=== PATIENT | male | born 1965 | race Caucasian/White ===

== ENCOUNTER 2016-12-21 01:41 | Inpatient (IN) | payer MEDICAID ==
[~2016-12-21] VITALS: Ht 177.8 cm; Wt 63.8 kg
[2016-12-21] MEDS ORDERED: PROPOFOL 100 ML IV PRN (01:55)
[2016-12-21] MEDS ORDERED: FENTANYL PF 100 MCG/2ML IV ONE (02:00)
[2016-12-21] MEDS ORDERED: OMNIPAQUE 350 MG/ML, 100ML BOTTLE ONE (02:15)
[2016-12-21 02:34] LABS: ABG COLLECTION SITE RIGHT BRACHIAL
[2016-12-21 02:44] LABS: DAU SCREEN DISCLAIMER
[2016-12-21 02:45] LABS: ASPARTATE AMINO TRANSFERASE 37 U/L (15-37); BLOOD UREA NITROGEN 18 mg/dL (7-18)
[2016-12-21 02:51] LABS: IS PT STATUS REG ER OR PRE ER? YES
[2016-12-21] MEDS ORDERED: SODIUM CHLORIDE 0.9% 1,000ML IVBOLUS ONE (03:00)
[2016-12-21] MEDS ORDERED: LORazepam 1MG TABLET PO PRN (03:30)
[2016-12-21] MEDS ORDERED: BISACODYL 10 MG SUPP PR PRN (03:30)
[2016-12-21] MEDS ORDERED: PROMETHAZINE 25 MG/ML, 1ML IM PRN (03:30)
[2016-12-21] MEDS ORDERED: ONDANSETRON 2MG/ML, 2ML IVP PRN (03:30)
[2016-12-21] MEDS ORDERED: MORPHINE SULFATE 4 MG/ML, 1ML IVPush PRN (03:30)
[2016-12-21] MEDS: SODIUM CHLORIDE 0.9% 1,000 ML IV SCH ×4 (04:12→23:17)
[2016-12-21] MEDS ORDERED: PHARMACY MAY ADJ FOR RENAL FX MC SCH (04:30)
[2016-12-21] MEDS ORDERED: DEXTROSE 50%, 50ML SYRINGE IVPush PRN (04:30)
[2016-12-21] MEDS ORDERED: LACTULOSE 20 GM/30 ML UDC NG PRN (04:30)
[2016-12-21] MEDS ORDERED: GLUCAGON 1 MG IM PRN (04:30)
[2016-12-21] MEDS ORDERED: ROCURONIUM 10 MG/ML IVPush ONE (04:30)
[2016-12-21] MEDS ORDERED: LIDOCAINE-MPF 1%, 2ML ENDO PRN (04:30)
[2016-12-21] MEDS ORDERED: FENTANYL PF 100 MCG/2ML IVPush PRN (04:30)
[2016-12-21] MEDS: ALBUTEROL/IPRATROPIUM 2.5MG/0.5MG, 3 ML INLINE SCH ×7 (04:30→19:02)
[2016-12-21] MEDS ORDERED: ETOMIDATE 20 MG/10 ML IVPush ONE (04:30)
[2016-12-21] MEDS ORDERED: PROPOFOL 100 ML IV ONE (04:34)
[2016-12-21] MEDS ORDERED: ALBUTEROL SULFATE 2.5 MG/3 ML ONE (04:40)
[2016-12-21] MEDS: ENOXAPARIN 40 MG/0.4 ML SQ SCH (05:16)
[2016-12-21 05:59] LABS: ABG COLLECTION SITE RIGHT RADIAL; COLLATERAL CIRCULATION TESTING NORMAL
[2016-12-21 06:28] VITALS: BP 90/67
[2016-12-21] MEDS ORDERED: NOREPINEPHRINE 1 MG/ML, 4ML ONE (06:38)
[2016-12-21] MEDS: FAMOTIDINE 20 MG/2 ML IV SCH ×2 (09:18→21:12)
[2016-12-21] MEDS: PROPOFOL 100 ML IV PRN ×3 (09:22→18:07)
[2016-12-21] MEDS: SODIUM CHLORIDE FLUSH 10ML SYR IVF SCH ×2 (10:02→21:12)
[2016-12-21 10:25] LABS: IS PT STATUS REG ER OR PRE ER? NO
[2016-12-21 10:28] LABS: HIV 1&2 ANTIBODY SCREEN Nonreactive (Nonreactive); HIV-1 p24 ANTIGEN Nonreactive (Nonreactive)
[2016-12-21] MEDS: methylPREDNISolone SOD SUCC 125 MG/2 ML IVPush SCH ×2 (12:01→18:04)
[2016-12-21] MEDS: NOREPINEPHRINE 4 MG in SODIUM CHLORIDE 0.9% 246 ML IV PRN (13:07)
[2016-12-21 15:28] LABS: IS PT STATUS REG ER OR PRE ER? NO
[2016-12-21] MEDS ORDERED: PHARMACOKINETIC MONITORING MC PRN (23:45)
[2016-12-22] MEDS ORDERED: VANCOMYCIN PER PHARMACY MC PRN
[2016-12-22] MEDS: PIPERACILLIN/TAZO/PMX 3.375GM 50 ML IV SCH ×4 (00:09→17:29)
[2016-12-22] MEDS: methylPREDNISolone SOD SUCC 125 MG/2 ML IVPush SCH ×4 (00:09→17:28)
[2016-12-22] MEDS: VANCOMYCIN 1,300 MG in SODIUM CHLORIDE 0.9% 250 ML IV SCH ×2 (00:59→19:32)
[2016-12-22] MEDS: PROPOFOL 100 ML IV PRN ×4 (01:02→14:59)
[2016-12-22] MEDS: ALBUTEROL/IPRATROPIUM 2.5MG/0.5MG, 3 ML INLINE SCH ×6 (02:10→22:27)
[2016-12-22 05:00] LABS: ABG COLLECTION SITE RIGHT RADIAL; COLLATERAL CIRCULATION TESTING NORMAL
[2016-12-22] MEDS: ENOXAPARIN 40 MG/0.4 ML SQ SCH (05:51)
[2016-12-22] MEDS: SODIUM CHLORIDE 0.9% 1,000 ML IV SCH ×2 (08:07→14:54)
[2016-12-22] MEDS: FAMOTIDINE 20 MG/2 ML IV SCH ×2 (08:24→21:12)
[2016-12-22] MEDS: SODIUM CHLORIDE FLUSH 10ML SYR IVF SCH ×2 (08:24→21:12)
[2016-12-22] MEDS ORDERED: ROCURONIUM 10 MG/ML ONE (09:00)
[2016-12-22] MEDS ORDERED: ETOMIDATE 40 MG/20 ML ONE (09:00)
[2016-12-22 09:05] LABS: BLOOD UREA NITROGEN 16 mg/dL (7-18)
[2016-12-22 11:00] LABS: HEPATITIS C VIRUS ANTIBODY Reactive (Nonreactive)
[2016-12-22] MEDS: NOREPINEPHRINE 4 MG in SODIUM CHLORIDE 0.9% 246 ML IV PRN (11:25)
[2016-12-22] MEDS: QUETIAPINE 25MG TABLET PO SCH (21:13)
[2016-12-23] MEDS: SODIUM CHLORIDE 0.9% 1,000 ML IV SCH ×2 (00:10→07:27)
[2016-12-23] MEDS: PIPERACILLIN/TAZO/PMX 3.375GM 50 ML IV SCH ×3 (00:11→14:35)
[2016-12-23] MEDS: methylPREDNISolone SOD SUCC 125 MG/2 ML IVPush SCH ×3 (00:13→14:37)
[2016-12-23] MEDS: ALBUTEROL/IPRATROPIUM 2.5MG/0.5MG, 3 ML INLINE SCH ×2 (02:07→06:50)
[2016-12-23 04:36] LABS: ABG COLLECTION SITE RIGHT RADIAL; COLLATERAL CIRCULATION TESTING NORMAL
[2016-12-23 04:44] LABS: BLOOD UREA NITROGEN 16 mg/dL (7-18)
[2016-12-23 04:48] LABS: ASPARTATE AMINO TRANSFERASE 36 U/L (15-37)
[2016-12-23] MEDS: ENOXAPARIN 40 MG/0.4 ML SQ SCH (05:55)
[2016-12-23] MEDS: PROPOFOL 100 ML IV PRN (06:01)
[2016-12-23] MEDS: SODIUM CHLORIDE FLUSH 10ML SYR IVF SCH (07:27)
[2016-12-23] MEDS: FAMOTIDINE 20 MG/2 ML IV SCH (07:27)
[2016-12-23] MEDS: QUETIAPINE 25MG TABLET PO SCH (07:27)
[2016-12-23] MEDS: VANCOMYCIN 1,300 MG in SODIUM CHLORIDE 0.9% 250 ML IV SCH (14:35)
== END 2016-12-23 16:30 | disposition left against medical advice (07) | DRG 208 ==
LOC: ED 03:37 → CCU 03:40 → MERGE 03:40
PROC: 5A1945Z Respiratory Ventilation, 24-96 Consecutive Hours (ICD-10-PCS; principal; 2016-12-21)
PROC: 0BH17EZ Insertion of Endotracheal Airway into Trachea, Via Natural or Artificial Opening (ICD-10-PCS; 2016-12-21)
PROC: 02HV33Z Insertion of Infusion Device into Superior Vena Cava, Percutaneous Approach (ICD-10-PCS; 2016-12-21)
PROC: B548ZZA Ultrasonography of Superior Vena Cava, Guidance (ICD-10-PCS; 2016-12-21)
PROC: 0T9B70Z Drainage of Bladder with Drainage Device, Via Natural or Artificial Opening (ICD-10-PCS; 2016-12-21)
DX: J96.02 Acute respiratory failure with hypercapnia (principal); G93.40 Encephalopathy, unspecified; I46.8 Cardiac arrest due to other underlying condition; Z99.11 Dependence on respirator [ventilator] status; E44.1 Mild protein-calorie malnutrition; E87.2 Acidosis; J96.01 Acute respiratory failure with hypoxia; R40.2430 Glasgow coma scale score 3-8, unspecified time; R73.9 Hyperglycemia, unspecified; F15.10 Other stimulant abuse, uncomplicated; B19.20 Unspecified viral hepatitis C without hepatic coma; J44.9 Chronic obstructive pulmonary disease, unspecified; D72.829 Elevated white blood cell count, unspecified
CPT/HCPCS: 31500; 36415; 36569; 36600; 51702; 70450; 71010; 71275; 76937; 77001; 80048; 80053; 80074; 80307; 81001; 82140; 82607; 82746; 82803; 82962; 83735; 84100; 84436; 84443; 84478; 84481; 84484; 85025; 85610; 85730; 86703; 87040; 87070; 87081; 87205; 87521; 87899; 93005; 93308; 93321; 93325; 93922; 94002; 94003; 94640; 96361; 96374; 96375; J1650; J2543; J2704; J3010; J3370; J3490; J7620; Q9967; C1751; G0435; J2930; J7030; J7050; S0028

== ENCOUNTER 2017-01-19 22:43 | Inpatient (IN) | payer MEDICAID ==
[~2017-01-19] VITALS: Ht 182.9 cm; Wt 62.0 kg
[2017-01-19] MEDS ORDERED: methylPREDNISolone SOD SUCC 125 MG/2 ML IVP ONE (23:00)
[2017-01-19] MEDS ORDERED: SODIUM CHLORIDE 0.9% 1,000ML IVBOLUS ONE (23:00)
[2017-01-19] MEDS ORDERED: SODIUM CHLORIDE FLUSH 10ML SYR IVF ONE (23:00)
[2017-01-19] MEDS ORDERED: ALBUTEROL/IPRATROPIUM 2.5MG/0.5MG, 3 ML NEB ONE (23:00)
[2017-01-19] MEDS ORDERED: ALBUTEROL/IPRATROPIUM 2.5MG/0.5MG, 3 ML ONE (23:02)
[2017-01-19] MEDS ORDERED: methylPREDNISolone SOD SUCC 125 MG/2 ML ONE (23:05)
[2017-01-19 23:42] LABS: BLOOD UREA NITROGEN 16 mg/dL (7-18)
[2017-01-19 23:48] LABS: ABG COLLECTION SITE RIGHT RADIAL; COLLATERAL CIRCULATION TESTING NORMAL
[2017-01-20] MEDS ORDERED: KETAMINE 10 MG/ML, 20ML ONE (00:03)
[2017-01-20] MEDS ORDERED: PROPOFOL 100 ML IV PRN (00:18)
[2017-01-20] MEDS ORDERED: ALBUTEROL SULFATE 2.5 MG/3 ML ONE (00:24)
[2017-01-20] MEDS ORDERED: PHARMACY MAY ADJ FOR RENAL FX MC PRN (00:30)
[2017-01-20] MEDS ORDERED: PANTOPRAZOLE 40 MG IV IV SCH (00:30)
[2017-01-20] MEDS ORDERED: ALBUTEROL SULFATE 2.5 MG/3 ML NPPB ONE (00:30)
[2017-01-20] MEDS ORDERED: SODIUM CHLORIDE 0.9% 1,000ML IVBOLUS ONE ×2 (00:30)
[2017-01-20] MEDS ORDERED: SUCCINYLCHOLINE 20 MG/ML, 10ML IVPush ONE (00:30)
[2017-01-20] MEDS ORDERED: ACETAMINOPHEN 650 MG/20.3 ML UDC PO PRN (00:30)
[2017-01-20] MEDS ORDERED: ACETAMINOPHEN 650 MG SUPP PR PRN (00:30)
[2017-01-20] MEDS ORDERED: VANCOMYCIN PER PHARMACY MC PRN (00:30)
[2017-01-20] MEDS ORDERED: MORPHINE SULFATE 4 MG/ML, 1ML IV PRN (00:30)
[2017-01-20] MEDS ORDERED: SODIUM CHLORIDE 0.9%, 500ML IVBOLUS PRN ×2 (00:30)
[2017-01-20] MEDS ORDERED: KETAMINE 10 MG/ML, 20ML IV ONE (00:30)
[2017-01-20] MEDS ORDERED: LORazepam 2 MG/ML, 1ML ONE (00:50)
[2017-01-20] MEDS ORDERED: LORazepam 2 MG/ML, 1ML IVPush ONE (01:00)
[2017-01-20 01:03] LABS: ABG COLLECTION SITE LEFT BRACHIAL
[2017-01-20] MEDS: PIPERACILLIN/TAZO/PMX 4.5GM 50 ML IVPB SCH ×4 (01:53→17:44)
[2017-01-20] MEDS: ENOXAPARIN 40 MG/0.4 ML SQ SCH (01:53)
[2017-01-20] MEDS: methylPREDNISolone SOD SUCC 125 MG/2 ML IVPush SCH ×3 (01:58→17:43)
[2017-01-20] MEDS ORDERED: PHARMACOKINETIC MONITORING MC PRN (02:00)
[2017-01-20] MEDS ORDERED: VANCOMYCIN 1,400 MG in SODIUM CHLORIDE 0.9% 250 ML IV SCH (02:00)
[2017-01-20] MEDS ORDERED: PHARMACOKINETIC CONSULTATION MC ONE (02:00)
[2017-01-20 02:14] LABS: ABG COLLECTION SITE LEFT RADIAL; COLLATERAL CIRCULATION TESTING NORMAL
[2017-01-20 02:21] VITALS: BP 78/56
[2017-01-20 02:25] VITALS: BP 78/56
[2017-01-20] MEDS ORDERED: ALBUTEROL/IPRATROPIUM 2.5MG/0.5MG, 3 ML NEB ONE (02:30)
[2017-01-20] MEDS ORDERED: PNEUMOCOCCAL 23 VACCINE IM-VACC ONE (03:00)
[2017-01-20] MEDS: SODIUM CHLORIDE 0.9% 1,000 ML IV SCH ×2 (03:30→15:06)
[2017-01-20] MEDS ORDERED: FENTANYL PF 2,500 MCG in SODIUM CHLORIDE 0.9% 200 ML IV PRN (04:14)
[2017-01-20 04:30] VITALS: BP 110/66
[2017-01-20] MEDS ORDERED: GLUCAGON 1 MG IM PRN (04:30)
[2017-01-20] MEDS ORDERED: MIDAZOLAM 1 MG/ML, 2ML IVPush PRN (04:30)
[2017-01-20] MEDS ORDERED: ALBUTEROL/IPRATROPIUM 2.5MG/0.5MG, 3 ML INLINE SCH (04:30)
[2017-01-20] MEDS ORDERED: LIDOCAINE-MPF 1%, 2ML ENDO PRN (04:30)
[2017-01-20] MEDS ORDERED: DEXTROSE 50%, 50ML SYRINGE IVPush PRN (04:30)
[2017-01-20 04:37] LABS: ABG COLLECTION SITE LEFT RADIAL; COLLATERAL CIRCULATION TESTING NORMAL
[2017-01-20 04:51] LABS: IS PT STATUS REG ER OR PRE ER? NO
[2017-01-20] MEDS: ALBUTEROL/IPRATROPIUM 2.5MG/0.5MG, 3 ML INLINE SCH ×5 (06:00→22:04)
[2017-01-20] MEDS: PROPOFOL 100 ML IV PRN (06:21)
[2017-01-20] MEDS ORDERED: PROPOFOL 10 MG/ML, 100ML IV ONE (08:00)
[2017-01-20] MEDS ORDERED: ROCURONIUM 10 MG/ML ONE (08:00)
[2017-01-20] MEDS ORDERED: SUCCINYLCHOLINE 20 MG/ML, 10ML ONE (08:00)
[2017-01-20] MEDS ORDERED: PROPOFOL 10 MG/ML, 20ML ONE (08:00)
[2017-01-20] MEDS: VANCOMYCIN 1,200 MG in SODIUM CHLORIDE 0.9% 250 ML IV SCH (15:05)
[2017-01-20] MEDS: FAMOTIDINE 20 MG/2 ML IVPush SCH (21:14)
[2017-01-21] MEDS: methylPREDNISolone SOD SUCC 125 MG/2 ML IVPush SCH ×3 (00:06→17:24)
[2017-01-21] MEDS: ENOXAPARIN 40 MG/0.4 ML SQ SCH (00:06)
[2017-01-21] MEDS: PIPERACILLIN/TAZO/PMX 4.5GM 50 ML IVPB SCH ×4 (00:06→18:38)
[2017-01-21] MEDS: PROPOFOL 100 ML IV PRN (00:07)
[2017-01-21] MEDS: SODIUM CHLORIDE 0.9% 1,000 ML IV SCH ×2 (01:14→11:18)
[2017-01-21] MEDS: ALBUTEROL/IPRATROPIUM 2.5MG/0.5MG, 3 ML INLINE SCH ×2 (01:30→06:00)
[2017-01-21 02:09] LABS: DAU SCREEN DISCLAIMER
[2017-01-21] MEDS: VANCOMYCIN 1,200 MG in SODIUM CHLORIDE 0.9% 250 ML IV SCH ×2 (02:17→14:29)
[2017-01-21 02:52] LABS: IS PT STATUS REG ER OR PRE ER? NO
[2017-01-21 04:00] VITALS: BP 107/73
[2017-01-21 04:23] LABS: ABG COLLECTION SITE LEFT RADIAL; COLLATERAL CIRCULATION TESTING NORMAL
[2017-01-21 04:32] LABS: BLOOD UREA NITROGEN 21 mg/dL (7-18)
[2017-01-21 04:35] LABS: ASPARTATE AMINO TRANSFERASE 20 U/L (15-37)
[2017-01-21 08:47] LABS: IS PT STATUS REG ER OR PRE ER? NO
[2017-01-21] MEDS: FAMOTIDINE 20 MG/2 ML IVPush SCH (08:54)
[2017-01-21] MEDS ORDERED: ALBUTEROL/IPRATROPIUM 2.5MG/0.5MG, 3 ML NPPB PRN (11:30)
[2017-01-21] MEDS ORDERED: ALBUTEROL/IPRATROPIUM 2.5MG/0.5MG, 3 ML NPPB SCH (14:00)
[2017-01-21] MEDS: ALBUTEROL/IPRATROPIUM 2.5MG/0.5MG, 3 ML NPPB SCH ×2 (19:50→23:20)
[2017-01-21] MEDS: FAMOTIDINE 20 MG TABLET PO SCH (21:24)
[2017-01-22] MEDS: ENOXAPARIN 40 MG/0.4 ML SQ SCH ×2 (00:11→23:57)
[2017-01-22] MEDS: PIPERACILLIN/TAZO/PMX 4.5GM 50 ML IVPB SCH ×2 (00:11→06:09)
[2017-01-22] MEDS: methylPREDNISolone SOD SUCC 125 MG/2 ML IVPush SCH ×2 (00:11→08:01)
[2017-01-22] MEDS: SODIUM CHLORIDE 0.9% 1,000 ML IV SCH (00:11)
[2017-01-22] MEDS: VANCOMYCIN 1,200 MG in SODIUM CHLORIDE 0.9% 250 ML IV SCH ×2 (02:04→15:42)
[2017-01-22 04:00] VITALS: BP 142/80
[2017-01-22 04:42] LABS: ABG COLLECTION SITE RIGHT RADIAL; COLLATERAL CIRCULATION TESTING NORMAL
[2017-01-22 04:57] LABS: BLOOD UREA NITROGEN 17 mg/dL (7-18)
[2017-01-22 05:02] LABS: ASPARTATE AMINO TRANSFERASE 13 U/L (15-37)
[2017-01-22] MEDS: ALBUTEROL/IPRATROPIUM 2.5MG/0.5MG, 3 ML NPPB SCH ×5 (06:00→22:19)
[2017-01-22] MEDS: PIPERACILLIN/TAZO/PMX 4.5GM 100 ML IVPB SCH ×3 (06:15→18:12)
[2017-01-22] MEDS: FAMOTIDINE 20 MG TABLET PO SCH ×2 (08:01→19:51)
[2017-01-22 12:54] VITALS: BP 120/78
[2017-01-22] MEDS ORDERED: ACETAMINOPHEN 325 MG TABLET ONE (19:16)
[2017-01-22 19:18] VITALS: BP 118/56
[2017-01-22] MEDS ORDERED: ACETAMINOPHEN 325 MG TABLET PO PRN (20:00)
[2017-01-22] MEDS: AMPICILLIN/SULBACTAM 3 GM in SODIUM CHLORIDE 0.9% 100 ML IV SCH (23:57)
[2017-01-23 01:39] VITALS: BP 107/56
[2017-01-23] MEDS: VANCOMYCIN 1,200 MG in SODIUM CHLORIDE 0.9% 250 ML IV SCH ×2 (02:51→15:18)
[2017-01-23 05:48] LABS: BLOOD UREA NITROGEN 21 mg/dL (7-18)
[2017-01-23] MEDS: AMPICILLIN/SULBACTAM 3 GM in SODIUM CHLORIDE 0.9% 100 ML IV SCH ×4 (05:50→23:27)
[2017-01-23 07:03] VITALS: BP 123/84
[2017-01-23] MEDS: ALBUTEROL/IPRATROPIUM 2.5MG/0.5MG, 3 ML NPPB SCH ×4 (07:25→19:57)
[2017-01-23] MEDS: FAMOTIDINE 20 MG TABLET PO SCH ×2 (08:01→20:24)
[2017-01-23 12:53] VITALS: BP 111/73
[2017-01-23 20:49] VITALS: BP 105/67
[2017-01-23] MEDS: ENOXAPARIN 40 MG/0.4 ML SQ SCH (23:27)
[2017-01-24 02:31] VITALS: BP 124/84
[2017-01-24] MEDS: VANCOMYCIN 1,200 MG in SODIUM CHLORIDE 0.9% 250 ML IV SCH ×2 (02:43→15:07)
[2017-01-24] MEDS: AMPICILLIN/SULBACTAM 3 GM in SODIUM CHLORIDE 0.9% 100 ML IV SCH ×3 (05:22→18:14)
[2017-01-24 07:18] VITALS: BP 116/85
[2017-01-24] MEDS: ALBUTEROL/IPRATROPIUM 2.5MG/0.5MG, 3 ML NPPB SCH ×4 (07:40→19:50)
[2017-01-24] MEDS: FAMOTIDINE 20 MG TABLET PO SCH (08:04)
[2017-01-24 13:02] VITALS: BP 111/69
[2017-01-24 21:27] VITALS: BP 115/66
[2017-01-25] MEDS: AMPICILLIN/SULBACTAM 3 GM in SODIUM CHLORIDE 0.9% 100 ML IV SCH ×4 (00:45→18:22)
[2017-01-25] MEDS: ENOXAPARIN 40 MG/0.4 ML SQ SCH (00:45)
[2017-01-25 03:44] VITALS: BP 121/75
[2017-01-25 05:59] LABS: BLOOD UREA NITROGEN 26 mg/dL (7-18)
[2017-01-25] MEDS: ALBUTEROL/IPRATROPIUM 2.5MG/0.5MG, 3 ML NPPB SCH (07:00)
[2017-01-25 07:48] VITALS: BP 106/67
[2017-01-25 13:47] VITALS: BP 114/68
[2017-01-25 19:01] VITALS: BP 115/66
[2017-01-25] MEDS ORDERED: CALCIUM CARBONATE 500 MG TAB.CHEW PO PRN (22:00)
[2017-01-26] MEDS: ENOXAPARIN 40 MG/0.4 ML SQ SCH (00:11)
[2017-01-26] MEDS: AMPICILLIN/SULBACTAM 3 GM in SODIUM CHLORIDE 0.9% 100 ML IV SCH ×3 (00:11→12:00)
[2017-01-26 02:00] VITALS: BP 120/75
[2017-01-26 06:58] VITALS: BP 112/74
[2017-01-26 12:15] VITALS: BP 138/68
[2017-01-26] MEDS ORDERED: AMOX1TAB64 PO (12:49)
[2017-01-26] MEDS ORDERED: PRED20TA PO (12:49)
[2017-01-26] MEDS ORDERED: ALBU8.5H3 INH (12:49)
== END 2017-01-26 15:17 | disposition home health service (06) | DRG 871 ==
LOC: ED 23:59 → SUATTDRO 01-20 00:25 → EDIP 01-20 00:29 → CCU 01-20 01:18 → 4WST 01-22 11:21
PROVIDERS: ADMIT Family Medicine; ATTEND Family Medicine
PROC: 5A09357 Assistance with Respiratory Ventilation, Less than 24 Consecutive Hours, Continuous Positive Airway Pressure (ICD-10-PCS; principal; 2017-01-20)
PROC: 5A1945Z Respiratory Ventilation, 24-96 Consecutive Hours (ICD-10-PCS; 2017-01-20)
PROC: 0BH17EZ Insertion of Endotracheal Airway into Trachea, Via Natural or Artificial Opening (ICD-10-PCS; 2017-01-20)
PROC: 0T9B70Z Drainage of Bladder with Drainage Device, Via Natural or Artificial Opening (ICD-10-PCS; 2017-01-20)
DX: A40.9 Streptococcal sepsis, unspecified (principal); J96.01 Acute respiratory failure with hypoxia; J96.02 Acute respiratory failure with hypercapnia; E43 Unspecified severe protein-calorie malnutrition; Z99.11 Dependence on respirator [ventilator] status; J44.1 Chronic obstructive pulmonary disease with (acute) exacerbation; E87.2 Acidosis; Z68.1 Body mass index [BMI] 19.9 or less, adult; F17.210 Nicotine dependence, cigarettes, uncomplicated; F15.10 Other stimulant abuse, uncomplicated; Z91.19 Patient's noncompliance with other medical treatment and regimen; S82.892A Other fracture of left lower leg, initial encounter for closed fracture; D64.9 Anemia, unspecified; R73.9 Hyperglycemia, unspecified; B96.3 Hemophilus influenzae [H. influenzae] as the cause of diseases classified elsewhere
CPT/HCPCS: 36415; 36600; 71010; 80048; 80053; 80202; 80307; 81001; 82040; 82803; 83735; 84478; 84484; 85025; 87040; 87070; 87081; 87147; 87150; 87205; 93005; 93306; 94002; 94003; 94640; 94660; 96374; 96375; J0295; J1650; J2250; J2543; J2704; J3370; J7613; J7620; C9113; J0330; J2060; J2930; J7030; J7050; J7512; S0028

== ENCOUNTER 2017-02-20 09:07 | Inpatient (IN) | payer MEDICAID ==
[~2017-02-20] VITALS: Ht 182.9 cm; Wt 73.5 kg
[~2017-02-20 09:07] MED LIST: ALBU8.5H3 INH; AMOX1TAB64 PO; PRED20TA PO
[2017-02-20] MEDS ORDERED: SODIUM CHLORIDE 0.9% 1,000 ML IV ONE (09:40)
[2017-02-20] MEDS ORDERED: ALBUTEROL/IPRATROPIUM 2.5MG/0.5MG, 3 ML ONE ×3 (09:57→13:06)
[2017-02-20] MEDS ORDERED: SODIUM CHLORIDE 0.9% 1,000ML IVBOLUS ONE (10:00)
[2017-02-20] MEDS ORDERED: methylPREDNISolone SOD SUCC 125 MG/2 ML IVP ONE (10:00)
[2017-02-20] MEDS ORDERED: methylPREDNISolone SOD SUCC 125 MG/2 ML ONE (10:08)
[2017-02-20 10:12] LABS: BLOOD UREA NITROGEN 15 mg/dL (7-18)
[2017-02-20] MEDS: ALBUTEROL/IPRATROPIUM 2.5MG/0.5MG, 3 ML NPPB SCH (10:14)
[2017-02-20 10:17] LABS: IS PT STATUS REG ER OR PRE ER? YES
[2017-02-20] MEDS ORDERED: ALBUTEROL/IPRATROPIUM 2.5MG/0.5MG, 3 ML NPPB ONE (11:00)
[2017-02-20] MEDS ORDERED: MAGNESIUM SULFATE PMX 2GM/50ML 50 ML IVPB ONE (12:00)
[2017-02-20] MEDS ORDERED: SODIUM CHLORIDE FLUSH 10ML SYR IVF PRN (12:30)
[2017-02-20] MEDS ORDERED: POLYETHYLENE GLYCOL 17 GM PACKET PO PRN (13:30)
[2017-02-20] MEDS: NICOTINE 14MG/24 HR PATCH.TD24 TD SCH (13:30)
[2017-02-20] MEDS ORDERED: BISACODYL 10 MG SUPP PR PRN (13:30)
[2017-02-20] MEDS ORDERED: OXYcodone IR 5MG TABLET PO PRN (13:30)
[2017-02-20] MEDS: ENOXAPARIN 40 MG/0.4 ML SQ SCH (13:30)
[2017-02-20] MEDS ORDERED: ACETAMINOPHEN 325 MG TABLET PO PRN (13:30)
[2017-02-20] MEDS ORDERED: ONDANSETRON 2MG/ML, 2ML IVPush PRN (13:30)
[2017-02-20] MEDS ORDERED: ENALAPRILAT 1.25 MG/ML, 2ML IVPush PRN (13:30)
[2017-02-20] MEDS ORDERED: morphine SULFATE 10 MG/ML, 1ML IVPush PRN (13:30)
[2017-02-20] MEDS ORDERED: hydrALAzine 20 MG/ML, 1ML IVPush PRN (13:30)
[2017-02-20] MEDS ORDERED: NICOTINE 14MG/24 HR PATCH.TD24 ONE (13:57)
[2017-02-20] MEDS ORDERED: ENOXAPARIN 40 MG/0.4 ML ONE (13:58)
[2017-02-20] MEDS ORDERED: ALBUTEROL/IPRATROPIUM 2.5MG/0.5MG, 3 ML NPPB SCH (15:00)
[2017-02-20] MEDS: SODIUM CHLORIDE 0.9% 1,000 ML IV SCH (18:25)
[2017-02-20] MEDS: DOXYCYCLINE 100 MG in DEXTROSE 5% 250 ML IV SCH (18:25)
[2017-02-20] MEDS: methylPREDNISolone SOD SUCC 125 MG/2 ML IVPush SCH ×2 (18:28→22:00)
[2017-02-20 18:54] VITALS: BP 125/85
[2017-02-20] MEDS: ALBUTEROL/IPRATROPIUM 2.5MG/0.5MG, 3 ML HHN SCH (20:06)
[2017-02-21 01:38] VITALS: BP 126/86
[2017-02-21] MEDS: DOXYCYCLINE 100 MG in DEXTROSE 5% 250 ML IV SCH ×2 (04:00→17:04)
[2017-02-21] MEDS: methylPREDNISolone SOD SUCC 125 MG/2 ML IVPush SCH ×4 (04:00→21:13)
[2017-02-21] MEDS: SODIUM CHLORIDE 0.9% 1,000 ML IV SCH (04:45)
[2017-02-21 05:21] LABS: ASPARTATE AMINO TRANSFERASE 20 U/L (15-37); BLOOD UREA NITROGEN 17 mg/dL (7-18)
[2017-02-21] MEDS: ALBUTEROL/IPRATROPIUM 2.5MG/0.5MG, 3 ML HHN SCH ×4 (06:00→20:15)
[2017-02-21 07:30] VITALS: BP 120/87
[2017-02-21] MEDS: SENNA/DOCUSATE TABLET PO SCH (08:32)
[2017-02-21 14:00] VITALS: BP 127/86
[2017-02-21] MEDS: NICOTINE 14MG/24 HR PATCH.TD24 TD SCH (14:03)
[2017-02-21] MEDS: ENOXAPARIN 40 MG/0.4 ML SQ SCH (14:04)
[2017-02-21 14:53] VITALS: BP 147/80
[2017-02-21 18:53] VITALS: BP 118/64
[2017-02-22 01:50] VITALS: BP 119/70
[2017-02-22] MEDS: methylPREDNISolone SOD SUCC 125 MG/2 ML IVPush SCH ×4 (04:22→21:16)
[2017-02-22] MEDS: DOXYCYCLINE 100 MG in DEXTROSE 5% 250 ML IV SCH ×2 (04:22→16:31)
[2017-02-22] MEDS: ALBUTEROL/IPRATROPIUM 2.5MG/0.5MG, 3 ML HHN SCH ×2 (06:00→19:30)
[2017-02-22 07:44] VITALS: BP 116/79
[2017-02-22] MEDS ORDERED: ALBUTEROL/IPRATROPIUM 2.5MG/0.5MG, 3 ML NPPB PRN (08:00)
[2017-02-22] MEDS: SENNA/DOCUSATE TABLET PO SCH (09:00)
[2017-02-22 12:35] VITALS: BP 112/75
[2017-02-22] MEDS: ENOXAPARIN 40 MG/0.4 ML SQ SCH (13:30)
[2017-02-22] MEDS: NICOTINE 14MG/24 HR PATCH.TD24 TD SCH (14:48)
[2017-02-22 19:54] VITALS: BP 131/82
[2017-02-23] MEDS: DOXYCYCLINE 100 MG in DEXTROSE 5% 250 ML IV SCH (03:29)
[2017-02-23] MEDS: methylPREDNISolone SOD SUCC 125 MG/2 ML IVPush SCH ×2 (03:29→09:04)
[2017-02-23 03:36] VITALS: BP 122/63
[2017-02-23 07:30] VITALS: BP 116/79
[2017-02-23] MEDS ORDERED: SENNA/DOCUSATE TABLET PO SCH (09:00)
[2017-02-23] MEDS: ALBUTEROL/IPRATROPIUM 2.5MG/0.5MG, 3 ML HHN SCH (09:00)
[2017-02-23] MEDS ORDERED: POLY17PO5 PO (12:12)
[2017-02-23] MEDS ORDERED: IPRA3AMP NPPB (12:12)
[2017-02-23] MEDS ORDERED: DOXY-168 PO (12:12)
[2017-02-23] MEDS ORDERED: PRED5TAB PO (12:12)
[2017-02-23] MEDS ORDERED: ALBU8.5H3 INH (12:19)
[2017-02-23 12:48] VITALS: BP 124/79
[2017-02-23] MEDS: ENOXAPARIN 40 MG/0.4 ML SQ SCH (13:30)
[2017-02-23] MEDS: NICOTINE 14MG/24 HR PATCH.TD24 TD SCH (13:46)
[2017-02-23] MEDS ORDERED: POLYETHYLENE GLYCOL 17 GM PACKET PO PRN (14:30)
[2017-02-23] MEDS ORDERED: OXYcodone IR 5MG TABLET PO PRN (14:30)
[2017-02-23] MEDS ORDERED: ENALAPRILAT 1.25 MG/ML, 2ML IVPush PRN (14:30)
[2017-02-23] MEDS ORDERED: ONDANSETRON 2MG/ML, 2ML IVPush PRN (14:30)
[2017-02-24] MEDS ORDERED: ENOXAPARIN 40 MG/0.4 ML SQ SCH (13:30)
== END 2017-02-23 14:10 | disposition home or self-care (01) | DRG 191 ==
LOC: ED 09:43 → EDIP 12:05 → 4WST 15:04
PROVIDERS: ADMIT Internal Medicine; ATTEND Internal Medicine
DX: J44.1 Chronic obstructive pulmonary disease with (acute) exacerbation (principal); E46 Unspecified protein-calorie malnutrition; F17.210 Nicotine dependence, cigarettes, uncomplicated; F15.10 Other stimulant abuse, uncomplicated; B18.2 Chronic viral hepatitis C; Z68.22 Body mass index [BMI] 22.0-22.9, adult; Z71.6 Tobacco abuse counseling
CPT/HCPCS: 36415; 71010; 80048; 80053; 80061; 81003; 82040; 83036; 83735; 83880; 84439; 84443; 84484; 85025; 87070; 87205; 93005; 94640; 96374; J1650; J7060; J7620; J2930; J3475; J7030

== ENCOUNTER 2017-03-11 10:26 | Inpatient (IN) | payer MEDICAID ==
[~2017-03-11] VITALS: Ht 177.8 cm; Wt 64.1 kg
[~2017-03-11 10:26] MED LIST changes: +DOXY-168 PO; +IPRA3AMP NPPB; +POLY17PO5 PO; +PRED5TAB PO
[2017-03-11 10:52] LABS: ABG COLLECTION SITE RIGHT RADIAL; COLLATERAL CIRCULATION TESTING NORMAL
[2017-03-11] MEDS ORDERED: FENTANYL PF 100 MCG/2ML ONE (10:57)
[2017-03-11] MEDS ORDERED: methylPREDNISolone SOD SUCC 125 MG/2 ML ONE (10:59)
[2017-03-11] MEDS ORDERED: SODIUM CHLORIDE FLUSH 10ML SYR IVF ONE (11:00)
[2017-03-11] MEDS ORDERED: PROPOFOL 10 MG/ML, 20ML IVPush ONE (11:00)
[2017-03-11] MEDS ORDERED: MIDAZOLAM 1 MG/ML, 2ML IVPush ONE ×2 (11:00)
[2017-03-11] MEDS ORDERED: SODIUM CHLORIDE 0.9% 1,000ML IVBOLUS ONE ×2 (11:00→12:00)
[2017-03-11] MEDS ORDERED: ETOMIDATE 20 MG/10 ML IVPush ONE (11:00)
[2017-03-11] MEDS ORDERED: MAGNESIUM SULFATE PMX 2GM/50ML 50 ML IV ONE (11:00)
[2017-03-11] MEDS ORDERED: FENTANYL PF 100 MCG/2ML IV ONE (11:00)
[2017-03-11] MEDS ORDERED: SUCCINYLCHOLINE 20 MG/ML, 10ML IVPush ONE (11:00)
[2017-03-11] MEDS ORDERED: methylPREDNISolone SOD SUCC 125 MG/2 ML IVP ONE (11:00)
[2017-03-11] MEDS ORDERED: ALBUTEROL/IPRATROPIUM 2.5MG/0.5MG, 3 ML ONE (11:02)
[2017-03-11 11:30] LABS: BLOOD UREA NITROGEN 16 mg/dL (7-18)
[2017-03-11 11:34] LABS: IS PT STATUS REG ER OR PRE ER? YES
[2017-03-11] MEDS: MIDAZOLAM HCL 25 MG in SODIUM CHLORIDE 0.9% 245 ML IV PRN ×2 (11:37→18:40)
[2017-03-11 12:13] LABS: DAU SCREEN DISCLAIMER
[2017-03-11] MEDS ORDERED: NOREPINEPHRINE 4 MG in SODIUM CHLORIDE 0.9% 246 ML IV PRN (12:21)
[2017-03-11] MEDS ORDERED: PROPOFOL 100 ML IV PRN (12:21)
[2017-03-11] MEDS ORDERED: MIDAZOLAM 1 MG/ML, 2ML IVPush PRN (12:30)
[2017-03-11] MEDS ORDERED: LIDOCAINE-MPF 1%, 2ML ENDO PRN (12:30)
[2017-03-11] MEDS ORDERED: DEXTROSE 50%, 50ML SYRINGE IVPush PRN (12:30)
[2017-03-11] MEDS: ALBUTEROL/IPRATROPIUM 2.5MG/0.5MG, 3 ML INLINE SCH ×4 (12:30→22:31)
[2017-03-11] MEDS ORDERED: GLUCAGON 1 MG IM PRN (12:30)
[2017-03-11] MEDS ORDERED: FENTANYL PF 100 MCG/2ML IVPush PRN (12:30)
[2017-03-11] MEDS ORDERED: MIDAZOLAM 1 MG/ML, 5ML ONE (14:00)
[2017-03-11] MEDS ORDERED: ETOMIDATE 20 MG/10 ML ONE (14:00)
[2017-03-11] MEDS ORDERED: SUCCINYLCHOLINE 20 MG/ML, 10ML ONE (14:00)
[2017-03-11] MEDS ORDERED: PROPOFOL 10 MG/ML, 100ML IV ONE (14:00)
[2017-03-11] MEDS ORDERED: PROPOFOL 10 MG/ML, 20ML ONE (14:00)
[2017-03-11] MEDS: ENOXAPARIN 40 MG/0.4 ML SQ SCH (14:16)
[2017-03-11] MEDS ORDERED: DOCUSATE 100 MG CAPSULE PO PRN (16:30)
[2017-03-11] MEDS ORDERED: BISACODYL 10 MG SUPP PR PRN (16:30)
[2017-03-11] MEDS ORDERED: POLYETHYLENE GLYCOL 17 GM PACKET PO PRN (16:30)
[2017-03-11] MEDS: methylPREDNISolone SOD SUCC 125 MG/2 ML IVPush SCH ×2 (16:54→22:50)
[2017-03-11] MEDS: THIAMINE 100 MG, MVI ADULT 10 ML, FOLIC ACID 1 MG in D5%-0.9% NACL 1,000 ML IV SCH (16:54)
[2017-03-11 21:32] LABS: ABG COLLECTION SITE RIGHT RADIAL; COLLATERAL CIRCULATION TESTING NORMAL
[2017-03-11] MEDS: FAMOTIDINE 20 MG/2 ML IVPush SCH (22:48)
[2017-03-11] MEDS: SODIUM CHLORIDE FLUSH 10ML SYR IVF SCH (22:48)
[2017-03-12] MEDS: MIDAZOLAM HCL 25 MG in SODIUM CHLORIDE 0.9% 245 ML IV PRN ×3 (01:25→12:30)
[2017-03-12] MEDS: ALBUTEROL/IPRATROPIUM 2.5MG/0.5MG, 3 ML INLINE SCH ×6 (02:42→23:40)
[2017-03-12] MEDS: SODIUM CHLORIDE 0.9% 1,000 ML IV SCH ×2 (03:10→11:19)
[2017-03-12 04:23] VITALS: BP 106/67
[2017-03-12 04:23] LABS: ABG COLLECTION SITE RIGHT RADIAL; COLLATERAL CIRCULATION TESTING NORMAL
[2017-03-12] MEDS: methylPREDNISolone SOD SUCC 125 MG/2 ML IVPush SCH ×4 (04:33→22:16)
[2017-03-12 04:34] LABS: ASPARTATE AMINO TRANSFERASE 19 U/L (15-37); BLOOD UREA NITROGEN 15 mg/dL (7-18)
[2017-03-12] MEDS: SODIUM CHLORIDE FLUSH 10ML SYR IVF SCH ×2 (09:09→20:13)
[2017-03-12] MEDS: FAMOTIDINE 20 MG/2 ML IVPush SCH ×2 (09:09→20:13)
[2017-03-12] MEDS: ENOXAPARIN 40 MG/0.4 ML SQ SCH (11:22)
[2017-03-12] MEDS: THIAMINE 100 MG, MVI ADULT 10 ML, FOLIC ACID 1 MG in D5%-0.9% NACL 1,000 ML IV SCH (19:51)
[2017-03-13] MEDS: MIDAZOLAM HCL 25 MG in SODIUM CHLORIDE 0.9% 245 ML IV PRN (01:22)
[2017-03-13 04:00] VITALS: BP 127/73
[2017-03-13] MEDS: SODIUM CHLORIDE 0.9% 1,000 ML IV SCH (04:02)
[2017-03-13] MEDS: methylPREDNISolone SOD SUCC 125 MG/2 ML IVPush SCH ×2 (04:13→08:08)
[2017-03-13 04:28] LABS: ABG COLLECTION SITE RIGHT RADIAL; COLLATERAL CIRCULATION TESTING NORMAL
[2017-03-13] MEDS: ALBUTEROL/IPRATROPIUM 2.5MG/0.5MG, 3 ML INLINE SCH ×3 (04:30→10:34)
[2017-03-13 04:34] LABS: BLOOD UREA NITROGEN 20 mg/dL (7-18)
[2017-03-13] MEDS: SODIUM CHLORIDE FLUSH 10ML SYR IVF SCH (08:08)
[2017-03-13] MEDS: FAMOTIDINE 20 MG/2 ML IVPush SCH (08:08)
[2017-03-13] MEDS ORDERED: PRED10TA PO (12:52)
== END 2017-03-13 11:53 | disposition left against medical advice (07) | DRG 208 ==
LOC: ED 10:44 → EDIP 12:08 → CCU 13:56
PROVIDERS: ADMIT Hospitalist; ATTEND Hospitalist
PROC: 5A1945Z Respiratory Ventilation, 24-96 Consecutive Hours (ICD-10-PCS; principal; 2017-03-11)
PROC: 02HV33Z Insertion of Infusion Device into Superior Vena Cava, Percutaneous Approach (ICD-10-PCS; 2017-03-11)
PROC: 0BH17EZ Insertion of Endotracheal Airway into Trachea, Via Natural or Artificial Opening (ICD-10-PCS; 2017-03-11)
DX: J96.21 Acute and chronic respiratory failure with hypoxia (principal); J44.1 Chronic obstructive pulmonary disease with (acute) exacerbation; E87.2 Acidosis; Z99.11 Dependence on respirator [ventilator] status; E46 Unspecified protein-calorie malnutrition; J96.22 Acute and chronic respiratory failure with hypercapnia; F15.90 Other stimulant use, unspecified, uncomplicated; E86.1 Hypovolemia; F17.210 Nicotine dependence, cigarettes, uncomplicated; B18.2 Chronic viral hepatitis C; Z68.20 Body mass index [BMI] 20.0-20.9, adult
CPT/HCPCS: 31500; 36415; 36556; 36600; 51702; 71010; 80048; 80053; 80307; 82040; 82803; 83605; 83735; 83880; 84478; 84484; 85025; 87040; 87070; 87081; 87205; 93005; 94002; 94003; 94150; 94640; 96361; 96374; 96375; J1650; J2250; J2704; J3010; J3411; J7042; J7620; J0330; J2930; J3475; J7030; J7050; S0028

== ENCOUNTER 2017-08-06 11:19 | Inpatient (IN) | payer MEDICAID ==
[~2017-08-06] VITALS: Ht 182.9 cm; Wt 65.6 kg
[~2017-08-06 11:19] MED LIST changes: -ALBU8.5H3 INH; +ALBU8.5H8 INH; -DOXY-168 PO; +DOXY100T10 PO; +PRED10TA PO
[2017-08-06] MEDS ORDERED: methylPREDNISolone SOD SUCC 125 MG/2 ML IVP ONE (11:30)
[2017-08-06] MEDS ORDERED: ALBUTEROL 0.5%, 20ML NPPB SCH (11:30)
[2017-08-06] MEDS ORDERED: SODIUM CHLORIDE FLUSH 10ML SYR IVF ONE (11:30)
[2017-08-06] MEDS ORDERED: methylPREDNISolone SOD SUCC 125 MG/2 ML ONE (11:32)
[2017-08-06] MEDS ORDERED: LORazepam 2 MG/ML, 1ML ONE (11:38)
[2017-08-06] MEDS ORDERED: ALBUTEROL 0.5%, 20ML ONE (11:43)
[2017-08-06] MEDS ORDERED: LORazepam 2 MG/ML, 1ML IVPush ONE (12:00)
[2017-08-06 12:11] LABS: ABG COLLECTION SITE RIGHT RADIAL; COLLATERAL CIRCULATION TESTING NORMAL
[2017-08-06 12:13] LABS: HEMATOCRIT 50.8 % (39.2-51.8); HEMOGLOBIN 16.8 g/dL (13.7-18.0); WHITE BLOOD COUNT 11.7 x10^3/uL (3.4-10)
[2017-08-06 12:26] LABS: ASPARTATE AMINO TRANSFERASE 27 U/L (15-37); BLOOD UREA NITROGEN 22 mg/dL (7-18)
[2017-08-06 12:31] LABS: IS PT STATUS REG ER OR PRE ER? YES
[2017-08-06] MEDS: SODIUM CHLORIDE 0.9% 1,000 ML IV SCH (12:53)
[2017-08-06] MEDS ORDERED: hydrALAzine 20 MG/ML, 1ML IVPush PRN (13:00)
[2017-08-06] MEDS ORDERED: TEMAZEPAM 15 MG CAPSULE PO PRN (13:00)
[2017-08-06] MEDS ORDERED: POLYETHYLENE GLYCOL 17 GM PACKET PO PRN (13:00)
[2017-08-06] MEDS ORDERED: LORazepam 1MG TABLET PO PRN (13:00)
[2017-08-06] MEDS ORDERED: ACETAMINOPHEN 325 MG TABLET PO PRN (13:00)
[2017-08-06] MEDS ORDERED: OXYcodone IR 5MG TABLET PO PRN (13:00)
[2017-08-06] MEDS ORDERED: ONDANSETRON 2MG/ML, 2ML IVPush PRN (13:00)
[2017-08-06] MEDS ORDERED: ENALAPRILAT 1.25 MG/ML, 2ML IVPush PRN (13:00)
[2017-08-06] MEDS: ALBUTEROL/IPRATROPIUM 2.5MG/0.5MG, 3 ML NPPB SCH ×3 (14:00→22:10)
[2017-08-06 14:33] LABS: ABG COLLECTION SITE LEFT RADIAL; COLLATERAL CIRCULATION TESTING NORMAL
[2017-08-06] MEDS: ENOXAPARIN 40 MG/0.4 ML SQ SCH (15:29)
[2017-08-06] MEDS: methylPREDNISolone SOD SUCC 125 MG/2 ML IVPush SCH ×2 (15:29→21:42)
[2017-08-06 20:30] VITALS: BP 111/68
[2017-08-06 22:20] LABS: DAU SCREEN DISCLAIMER
[2017-08-06 22:58] LABS: RAPID INFLUENZA A Negative (Negative); RAPID INFLUENZA B Negative (Negative)
[2017-08-07] MEDS: SODIUM CHLORIDE 0.9% 1,000 ML IV SCH ×2 (01:22→07:54)
[2017-08-07] MEDS: methylPREDNISolone SOD SUCC 125 MG/2 ML IVPush SCH ×4 (01:22→18:55)
[2017-08-07] MEDS: ALBUTEROL/IPRATROPIUM 2.5MG/0.5MG, 3 ML NPPB SCH ×6 (02:41→22:00)
[2017-08-07 04:25] LABS: HEMOGLOBIN 16.1 g/dL (13.7-18.0)
[2017-08-07 04:33] LABS: HEMATOCRIT 49.3 % (39.2-51.8); WHITE BLOOD COUNT 7.1 x10^3/uL (3.4-10)
[2017-08-07 04:35] LABS: ASPARTATE AMINO TRANSFERASE 16 U/L (15-37); BLOOD UREA NITROGEN 24 mg/dL (7-18)
[2017-08-07 05:20] LABS: ABG COLLECTION SITE RIGHT RADIAL; COLLATERAL CIRCULATION TESTING NORMAL
[2017-08-07] MEDS: SENNA/DOCUSATE TABLET PO SCH (09:26)
[2017-08-07] MEDS: ENOXAPARIN 40 MG/0.4 ML SQ SCH (13:27)
[2017-08-08] MEDS: methylPREDNISolone SOD SUCC 125 MG/2 ML IVPush SCH ×4 (00:53→19:53)
[2017-08-08] MEDS: ALBUTEROL/IPRATROPIUM 2.5MG/0.5MG, 3 ML NPPB SCH ×3 (02:00→20:33)
[2017-08-08] MEDS: SENNA/DOCUSATE TABLET PO SCH (09:00)
[2017-08-08] MEDS: ENOXAPARIN 40 MG/0.4 ML SQ SCH (13:00)
[2017-08-08 15:47] VITALS: BP 132/76
[2017-08-08 19:42] VITALS: BP 133/74
[2017-08-09 00:36] VITALS: BP 117/64
[2017-08-09] MEDS: methylPREDNISolone SOD SUCC 125 MG/2 ML IVPush SCH ×2 (00:59→08:10)
[2017-08-09 07:42] VITALS: BP 129/80
[2017-08-09] MEDS: SENNA/DOCUSATE TABLET PO SCH (08:04)
[2017-08-09] MEDS: ENOXAPARIN 40 MG/0.4 ML SQ SCH (13:13)
[2017-08-09 14:40] VITALS: BP 132/82
[2017-08-09 19:26] VITALS: BP 121/81
[2017-08-10 01:23] VITALS: BP 131/89
[2017-08-10 05:47] VITALS: BP 126/77
[2017-08-10] MEDS: SENNA/DOCUSATE TABLET PO SCH (07:52)
[2017-08-10 08:27] VITALS: BP 118/71
[2017-08-10] MEDS ORDERED: ALBUTEROL/IPRATROPIUM 2.5MG/0.5MG, 3 ML NPPB PRN (09:00)
[2017-08-10] MEDS: ENOXAPARIN 40 MG/0.4 ML SQ SCH (13:53)
[2017-08-10 14:58] VITALS: BP 107/73
[2017-08-10 19:40] VITALS: BP 109/71
[2017-08-11 07:34] VITALS: BP 106/75
[2017-08-11] MEDS: SENNA/DOCUSATE TABLET PO SCH (08:24)
[2017-08-11] MEDS ORDERED: PRED20TA PO (12:36)
[2017-08-11 13:10] VITALS: BP 133/93
== END 2017-08-11 13:17 | disposition home or self-care (01) | DRG 871 ==
LOC: ED 12:47 → EDIP 12:48 → ED 13:17 → ICU 14:03 → 5SO 08-08 14:13 → 4NOR 08-10 05:40
PROVIDERS: ADMIT Internal Medicine; ATTEND Internal Medicine
PROC: 5A09357 Assistance with Respiratory Ventilation, Less than 24 Consecutive Hours, Continuous Positive Airway Pressure (ICD-10-PCS; principal; 2017-08-06)
DX: A41.9 Sepsis, unspecified organism (principal); G92 Toxic encephalopathy; J96.01 Acute respiratory failure with hypoxia; J96.02 Acute respiratory failure with hypercapnia; J44.1 Chronic obstructive pulmonary disease with (acute) exacerbation; B19.20 Unspecified viral hepatitis C without hepatic coma; F15.90 Other stimulant use, unspecified, uncomplicated; I10 Essential (primary) hypertension; Z72.0 Tobacco use; Z86.74 Personal history of sudden cardiac arrest; Z91.19 Patient's noncompliance with other medical treatment and regimen
CPT/HCPCS: 36415; 36600; 71010; 80053; 80307; 82803; 83605; 83880; 84484; 85025; 87040; 87081; 87400; 93005; 94640; 94660; 96374; J1650; J7620; G0479; J2930; J7030; J7512

== ENCOUNTER 2017-10-18 17:53 | Inpatient (IN) | payer MEDICAID ==
[~2017-10-18] VITALS: Ht 182.9 cm; Wt 66.6 kg
[~2017-10-18 17:53] MED LIST changes: +ETOMIDATE 20 MG/10 ML ONE; +PROPOFOL 10 MG/ML, 100ML IV ONE; +PROPOFOL 10 MG/ML, 20ML ONE; +SUCCINYLCHOLINE 20 MG/ML, 10ML ONE
[2017-10-18] MEDS ORDERED: ALBUTEROL SULFATE 2.5 MG/3 ML ONE (17:57)
[2017-10-18] MEDS ORDERED: methylPREDNISolone SOD SUCC 125 MG/2 ML ONE (18:09)
[2017-10-18] MEDS ORDERED: LORazepam 2 MG/ML, 1ML ONE (18:10)
[2017-10-18] MEDS ORDERED: LORazepam 2 MG/ML, 1ML IVPush ONE (18:30)
[2017-10-18] MEDS ORDERED: SODIUM CHLORIDE FLUSH 10ML SYR IVF ONE (18:30)
[2017-10-18] MEDS ORDERED: ALBUTEROL 0.5%, 20ML NPPB SCH (18:30)
[2017-10-18] MEDS ORDERED: methylPREDNISolone SOD SUCC 125 MG/2 ML IVP ONE (18:30)
[2017-10-18 18:31] LABS: BASOPHILS # (AUTO) 0.06 x10^3/uL (0-0.1); BASOPHILS % (AUTO) 1 % (0-1); EOSINOPHILS # (AUTO) 0.95 x10^3/uL (0-0.4); EOSINOPHILS % (AUTO) 10 % (1-7); LYMPHOCYTES # (AUTO) 1.53 x10^3/uL (1-3.4); LYMPHOCYTES % (AUTO) 16 % (22-44); MD NO; MEAN CORPUSCULAR HEMOGLOBIN 30.4 pg (27.5-34.5); MEAN CORPUSCULAR HGB CONC 32.5 g/dL (33.2-36.2); MEAN CORPUSCULAR VOLUME 93.5 fL (81-97); MEAN PLATELET VOLUME 8.7 fL (7.4-10.4); MONOCYTES # (AUTO) 0.98 x10^3/uL (0.2-0.8); MONOCYTES % (AUTO) 10 % (2-9); NEUTROPHILS # (AUTO) 6.05 x10^3/uL (1.8-6.8); NEUTROPHILS % (AUTO) 63 % (42-75); PLATELET COUNT 261 x10^3/uL (130-400); RED BLOOD COUNT 5.44 x10^6/uL (4.38-5.82); RED CELL DISTRIBUTION WIDTH 14.7 % (9.4-14.8)
[2017-10-18 18:37] LABS: INTERNATIONAL NORMALIZED RATIO 1.07 (0.93-1.1)
[2017-10-18] MEDS: PLEASE ENTER HEIGHT AND WEIGHT MC SCH (18:37)
[2017-10-18 18:42] LABS: ALANINE AMINOTRANSFERASE 161 U/L (12-78); ALBUMIN 3.9 g/dL (3.4-5.0); ANION GAP 7 mmol/L (5-15); CALCIUM 8.5 mg/dL (8.5-10.1); CHLORIDE 104 mmol/L (98-107)
[2017-10-18 18:46] LABS: ALKALINE PHOSPHATASE 145 U/L (45-117); BILIRUBIN,TOTAL 0.5 mg/dL (0.2-1.0); TROPONIN I < 0.015 ng/mL (0.000-0.045)
[2017-10-18] MEDS ORDERED: SODIUM CHLORIDE 0.9%, 500ML IVBOLUS ONE (19:00)
[2017-10-18] MEDS ORDERED: D5%-0.45NACL+KCL 20MEQ 1,000 ML IV SCH (19:48)
[2017-10-18] MEDS ORDERED: PROPOFOL 100 ML IV PRN (19:56)
[2017-10-18] MEDS ORDERED: ENALAPRILAT 1.25 MG/ML, 2ML IVPush PRN (20:00)
[2017-10-18] MEDS ORDERED: ONDANSETRON 2MG/ML, 2ML IVPush PRN (20:00)
[2017-10-18] MEDS ORDERED: LORazepam 2 MG/ML, 1ML IVPush PRN (20:00)
[2017-10-18] MEDS ORDERED: ENOXAPARIN 40 MG/0.4 ML SQ SCH (20:00)
[2017-10-18] MEDS: ALBUTEROL/IPRATROPIUM 2.5MG/0.5MG, 3 ML INLINE SCH (20:00)
[2017-10-18] MEDS ORDERED: PHARMACY MAY ADJ FOR RENAL FX MC SCH (20:00)
[2017-10-18] MEDS ORDERED: morphine SULFATE 10 MG/ML, 1ML IVPush PRN (20:00)
[2017-10-18] MEDS ORDERED: LIDOCAINE-MPF 1%, 2ML ENDO PRN (20:00)
[2017-10-18] MEDS ORDERED: hydrALAzine 20 MG/ML, 1ML IVPush PRN (20:00)
[2017-10-18] MEDS ORDERED: PROPOFOL 100 ML IV SCH (20:30)
[2017-10-18] MEDS ORDERED: ETOMIDATE 20 MG/10 ML IVPush ONE (20:30)
[2017-10-18] MEDS ORDERED: SUCCINYLCHOLINE 20 MG/ML, 10ML IVPush ONE (20:30)
[2017-10-18] MEDS: INSULIN LISPRO 100 UNITS/ML, PEN SQ-INSULIN SCH (21:00)
[2017-10-18] MEDS: methylPREDNISolone SOD SUCC 125 MG/2 ML IVPush SCH (21:32)
[2017-10-18] MEDS: HEPARIN 5,000 UNITS/ML, 1ML SQ SCH (21:32)
[2017-10-18] MEDS: SODIUM CHLORIDE 0.9% 1,000 ML IV SCH (21:32)
[2017-10-18] MEDS: FAMOTIDINE 20 MG/2 ML IV SCH (21:32)
[2017-10-18] MEDS: PIPERACILLIN/TAZO/PMX 3.375GM 50 ML IV SCH (22:00)
[2017-10-19] MEDS: PLEASE ENTER HEIGHT AND WEIGHT MC SCH (02:30)
[2017-10-19] MEDS: methylPREDNISolone SOD SUCC 125 MG/2 ML IVPush SCH ×3 (02:38→21:22)
[2017-10-19] MEDS: PIPERACILLIN/TAZO/PMX 3.375GM 50 ML IV SCH ×2 (02:38→07:57)
[2017-10-19 04:00] VITALS: BP 118/84
[2017-10-19 04:36] LABS: BASOPHILS % (AUTO) 0 % (0-1); EOSINOPHILS % (AUTO) 0 % (1-7); LYMPHOCYTES % (AUTO) 9 % (22-44); MD NO; MEAN CORPUSCULAR HEMOGLOBIN 30.8 pg (27.5-34.5); MEAN CORPUSCULAR HGB CONC 32.9 g/dL (33.2-36.2); MEAN CORPUSCULAR VOLUME 93.6 fL (81-97); MEAN PLATELET VOLUME 8.9 fL (7.4-10.4); MONOCYTES # (AUTO) 0.03 x10^3/uL (0.2-0.8); MONOCYTES % (AUTO) 1 % (2-9); NEUTROPHILS # (AUTO) 4.03 x10^3/uL (1.8-6.8); NEUTROPHILS % (AUTO) 90 % (42-75); PLATELET COUNT 191 x10^3/uL (130-400); RED BLOOD COUNT 4.38 x10^6/uL (4.38-5.82); RED CELL DISTRIBUTION WIDTH 14.5 % (9.4-14.8)
[2017-10-19] MEDS: HEPARIN 5,000 UNITS/ML, 1ML SQ SCH ×3 (04:43→21:22)
[2017-10-19 04:46] LABS: ALBUMIN 2.9 g/dL (3.4-5.0); ANION GAP 9 mmol/L (5-15); CALCIUM 7.9 mg/dL (8.5-10.1); CHLORIDE 108 mmol/L (98-107)
[2017-10-19 04:49] LABS: ALANINE AMINOTRANSFERASE 105 U/L (12-78); ALKALINE PHOSPHATASE 105 U/L (45-117); BILIRUBIN,TOTAL 0.6 mg/dL (0.2-1.0); CREATININE 0.74 mg/dL (0.7-1.3); TOTAL PROTEIN 6.8 g/dL (6.4-8.2)
[2017-10-19] MEDS: SODIUM CHLORIDE 0.9% 1,000 ML IV SCH (06:02)
[2017-10-19] MEDS: ALBUTEROL/IPRATROPIUM 2.5MG/0.5MG, 3 ML INLINE SCH (06:45)
[2017-10-19] MEDS: INSULIN LISPRO 100 UNITS/ML, PEN SQ-INSULIN SCH ×4 (07:00→21:00)
[2017-10-19] MEDS ORDERED: PANTOPRAZOLE 40 MG IV IVPush SCH (07:30)
[2017-10-19] MEDS: FAMOTIDINE 20 MG/2 ML IV SCH (07:57)
[2017-10-19] MEDS: DOXYCYCLINE 100 MG in DEXTROSE 5% 250 ML IV SCH ×2 (09:57→21:23)
[2017-10-19] MEDS ORDERED: ALBUTEROL/IPRATROPIUM 2.5MG/0.5MG, 3 ML NPPB PRN (13:00)
[2017-10-19] MEDS: FAMOTIDINE 20 MG TABLET PO SCH (21:23)
[2017-10-20] MEDS: HEPARIN 5,000 UNITS/ML, 1ML SQ SCH ×2 (04:24→12:38)
[2017-10-20] MEDS: methylPREDNISolone SOD SUCC 125 MG/2 ML IVPush SCH (04:24)
[2017-10-20 05:09] LABS: BASOPHILS % (AUTO) 0 % (0-1); EOSINOPHILS % (AUTO) 0 % (1-7); LYMPHOCYTES # (AUTO) 0.64 x10^3/uL (1-3.4); LYMPHOCYTES % (AUTO) 6 % (22-44); MD NO; MEAN CORPUSCULAR HEMOGLOBIN 30.8 pg (27.5-34.5); MEAN CORPUSCULAR VOLUME 93.2 fL (81-97); MEAN PLATELET VOLUME 8.8 fL (7.4-10.4); MONOCYTES # (AUTO) 0.49 x10^3/uL (0.2-0.8); MONOCYTES % (AUTO) 4 % (2-9); NEUTROPHILS # (AUTO) 10.54 x10^3/uL (1.8-6.8); NEUTROPHILS % (AUTO) 90 % (42-75); PLATELET COUNT 201 x10^3/uL (130-400); RED BLOOD COUNT 4.45 x10^6/uL (4.38-5.82); RED CELL DISTRIBUTION WIDTH 14.1 % (9.4-14.8)
[2017-10-20 05:11] LABS: ANION GAP 5 mmol/L (5-15); CALCIUM 8.2 mg/dL (8.5-10.1); CHLORIDE 108 mmol/L (98-107); CREATININE 0.67 mg/dL (0.7-1.3)
[2017-10-20] MEDS: ALBUTEROL/IPRATROPIUM 2.5MG/0.5MG, 3 ML NPPB SCH ×3 (05:30→11:00)
[2017-10-20] MEDS: INSULIN LISPRO 100 UNITS/ML, PEN SQ-INSULIN SCH (07:00)
[2017-10-20] MEDS ORDERED: ALBUTEROL/IPRATROPIUM 2.5MG/0.5MG, 3 ML INLINE PRN (08:00)
[2017-10-20] MEDS: FAMOTIDINE 20 MG TABLET PO SCH (08:40)
[2017-10-20] MEDS: DOXYCYCLINE 100 MG in DEXTROSE 5% 250 ML IV SCH (09:30)
[2017-10-20 18:47] VITALS: BP 134/65
[2017-10-20] MEDS: DOXYCYCLINE 100MG TABLET PO SCH (21:19)
[2017-10-21 01:14] VITALS: BP 128/80
[2017-10-21 04:53] LABS: ALBUMIN 2.9 g/dL (3.4-5.0); CALCIUM 8.1 mg/dL (8.5-10.1)
[2017-10-21 04:57] LABS: ALANINE AMINOTRANSFERASE 68 U/L (12-78); ALKALINE PHOSPHATASE 93 U/L (45-117); BILIRUBIN,TOTAL 0.3 mg/dL (0.2-1.0); CREATININE 0.76 mg/dL (0.7-1.3); TOTAL PROTEIN 6.6 g/dL (6.4-8.2)
[2017-10-21 05:03] LABS: ANION GAP 6 mmol/L (5-15); CHLORIDE 106 mmol/L (98-107)
[2017-10-21 07:17] VITALS: BP 122/86
[2017-10-21 08:20] VITALS: BP 109/68
[2017-10-21] MEDS: DOXYCYCLINE 100MG TABLET PO SCH (09:53)
[2017-10-21] MEDS ORDERED: DOXY100T PO (11:44)
[2017-10-21] MEDS ORDERED: ALBU8.5H8 INH (11:44)
[2017-10-21 14:00] VITALS: BP 121/75
[2017-10-21] MEDS ORDERED: PRED10TA PO (16:49)
== END 2017-10-21 16:56 | disposition home or self-care (01) | DRG 208 ==
LOC: ED 19:26 → EDIP 19:38 → CCU 20:50 → 3NE 10-20 14:29 → DCLOUNGE 10-21 16:50
PROVIDERS: ADMIT Internal Medicine; ATTEND Internal Medicine
PROC: 5A1935Z Respiratory Ventilation, Less than 24 Consecutive Hours (ICD-10-PCS; principal; 2017-10-18)
PROC: 0BH17EZ Insertion of Endotracheal Airway into Trachea, Via Natural or Artificial Opening (ICD-10-PCS; 2017-10-18)
PROC: 5A09357 Assistance with Respiratory Ventilation, Less than 24 Consecutive Hours, Continuous Positive Airway Pressure (ICD-10-PCS; 2017-10-18)
DX: J96.21 Acute and chronic respiratory failure with hypoxia (principal); J18.1 Lobar pneumonia, unspecified organism; J44.0 Chronic obstructive pulmonary disease with (acute) lower respiratory infection; E87.2 Acidosis; J44.1 Chronic obstructive pulmonary disease with (acute) exacerbation; B18.2 Chronic viral hepatitis C; J96.22 Acute and chronic respiratory failure with hypercapnia; F15.10 Other stimulant abuse, uncomplicated; F41.9 Anxiety disorder, unspecified; I10 Essential (primary) hypertension; Z86.74 Personal history of sudden cardiac arrest; Z91.19 Patient's noncompliance with other medical treatment and regimen; F17.200 Nicotine dependence, unspecified, uncomplicated
CPT/HCPCS: 31500; 36415; 36600; 51702; 71045; 80048; 80053; 82803; 82962; 83605; 83735; 84100; 84478; 84484; 85025; 85610; 87040; 87070; 87081; 87184; 87205; 93005; 94002; 94003; 94640; 94644; 94660; 96374; 96375; J1644; J2543; J2704; J7060; J7620; J0330; J2060; J2930; J7030; J7040; J7512; S0028

== ENCOUNTER 2018-04-10 18:42 | Inpatient (IN) | payer MEDICAID ==
[~2018-04-10] VITALS: Ht 182.9 cm; Wt 64.8 kg
[~2018-04-10 18:42] MED LIST changes: +DOXY100T PO; -ETOMIDATE 20 MG/10 ML ONE; -IPRA3AMP NPPB; +IPRA3AMP30 NPPB; +LEVO750T26 PO; -PROPOFOL 10 MG/ML, 100ML IV ONE; -PROPOFOL 10 MG/ML, 20ML ONE; -SUCCINYLCHOLINE 20 MG/ML, 10ML ONE
[2018-04-10] MEDS ORDERED: ALBUTEROL/IPRATROPIUM 2.5MG/0.5MG, 3 ML ONE ×2 (19:15→19:26)
[2018-04-10] MEDS: ALBUTEROL/IPRATROPIUM 2.5MG/0.5MG, 3 ML NPPB SCH ×2 (19:28→19:29)
[2018-04-10 19:30] LABS: ANION GAP 8 mmol/L (5-15); CALCIUM 8.5 mg/dL (8.5-10.1); CHLORIDE 108 mmol/L (98-107); CREATININE 0.98 mg/dL (0.7-1.3)
[2018-04-10] MEDS ORDERED: SODIUM CHLORIDE FLUSH 10ML SYR IVF ONE (19:30)
[2018-04-10 19:34] LABS: MEAN CORPUSCULAR HEMOGLOBIN 32.1 pg (27.5-34.5); MEAN CORPUSCULAR HGB CONC 33.7 g/dL (33.2-36.2); MEAN CORPUSCULAR VOLUME 95.3 fL (81-97); MEAN PLATELET VOLUME 9.1 fL (7.4-10.4); PLATELET COUNT 245 x10^3/uL (130-400); RED BLOOD COUNT 5.16 x10^6/uL (4.38-5.82); RED CELL DISTRIBUTION WIDTH 13.1 % (9.4-14.8)
[2018-04-10] MEDS ORDERED: HYDROmorphone 1 MG/ML, 1ML IV STA (19:44)
[2018-04-10] MEDS ORDERED: SODIUM CHLORIDE 0.9% 1,000 ML IV ONE (19:44)
[2018-04-10] MEDS ORDERED: MIDAZOLAM HCL 25 MG in SODIUM CHLORIDE 0.9% 245 ML IV PRN (19:44)
[2018-04-10] MEDS ORDERED: HYDROmorphone 2 MG/ML, 1ML ONE (19:53)
[2018-04-10] MEDS ORDERED: ETOMIDATE 20 MG/10 ML IV ONE (20:00)
[2018-04-10] MEDS ORDERED: MIDAZOLAM 1 MG/ML, 5ML IVP ONE (20:00)
[2018-04-10] MEDS ORDERED: SUCCINYLCHOLINE 20 MG/ML, 10ML IVPush ONE (20:00)
[2018-04-10 20:08] LABS: TROPONIN I < 0.015 ng/mL (0.000-0.045)
[2018-04-10 20:12] LABS: BASOPHILS # (AUTO) 0.03 x10^3/uL (0-0.1); BASOPHILS % (AUTO) 0 % (0-1); EOSINOPHILS # (AUTO) 1.78 x10^3/uL (0-0.4); EOSINOPHILS % (AUTO) 19 % (1-7); LYMPHOCYTES # (AUTO) 1.39 x10^3/uL (1-3.4); LYMPHOCYTES % (AUTO) 15 % (22-44); MD SCAN; MONOCYTES # (AUTO) 0.87 x10^3/uL (0.2-0.8); MONOCYTES % (AUTO) 9 % (2-9); NEUTROPHILS % (AUTO) 57 % (42-75)
[2018-04-10] MEDS ORDERED: methylPREDNISolone SOD SUCC 125 MG/2 ML ONE (20:15)
[2018-04-10] MEDS ORDERED: BISACODYL 10 MG SUPP PR PRN (20:30)
[2018-04-10] MEDS ORDERED: CEFTRIAXONE 1,000 MG in SODIUM CHLORIDE 0.9% 50 ML IVPB ONE (20:30)
[2018-04-10] MEDS ORDERED: methylPREDNISolone SOD SUCC 125 MG/2 ML IVP ONE (20:30)
[2018-04-10] MEDS: methylPREDNISolone SOD SUCC 125 MG/2 ML IVPush SCH (20:30)
[2018-04-10] MEDS ORDERED: AZITHROMYCIN 500 MG in SODIUM CHLORIDE 0.9% 250 ML IVPB ONE (20:30)
[2018-04-10] MEDS ORDERED: ONDANSETRON 2MG/ML, 2ML IVPush PRN (20:30)
[2018-04-10] MEDS ORDERED: CEFTRIAXONE PMX 1GM/50ML 50 ML ONE (20:43)
[2018-04-10] MEDS ORDERED: PHARMACY MAY ADJ FOR RENAL FX MC SCH (21:30)
[2018-04-10] MEDS ORDERED: LIDOCAINE-MPF 1%, 2ML ENDO PRN (21:30)
[2018-04-10] MEDS: DOXYCYCLINE 100 MG in DEXTROSE 5% 250 ML IV SCH (21:39)
[2018-04-10] MEDS: SODIUM CHLORIDE 0.9% 1,000 ML IV SCH (21:39)
[2018-04-10] MEDS: ENOXAPARIN 40 MG/0.4 ML SQ SCH (22:03)
[2018-04-10 22:34] LABS: AMPHETAMINE SCREEN, URINE Positive (Negative); BARBITURATE SCREEN, URINE Negative (Negative); BENZODIAZEPINE SCREEN, URINE Positive (Negative); CANNABINOID SCREEN, URINE Negative (Negative); COCAINE SCREEN, URINE Negative (Negative); METHADONE SCREEN, URINE Negative (Negative); OPIATE SCREEN, URINE Positive (Negative)
[2018-04-11] MEDS: MIDAZOLAM HCL 25 MG in SODIUM CHLORIDE 0.9% 245 ML IV PRN ×3 (00:22→19:19)
[2018-04-11] MEDS ORDERED: ALBUTEROL/IPRATROPIUM 2.5MG/0.5MG, 3 ML ONE (02:18)
[2018-04-11] MEDS: methylPREDNISolone SOD SUCC 125 MG/2 ML IVPush SCH ×4 (02:25→22:48)
[2018-04-11] MEDS: ALBUTEROL/IPRATROPIUM 2.5MG/0.5MG, 3 ML INLINE SCH ×3 (02:42→22:40)
[2018-04-11 04:23] VITALS: BP 105/71
[2018-04-11 04:48] LABS: ALANINE AMINOTRANSFERASE 67 U/L (12-78); ALBUMIN 3.3 g/dL (3.4-5.0); ANION GAP 7 mmol/L (5-15); CALCIUM 7.8 mg/dL (8.5-10.1); CHLORIDE 110 mmol/L (98-107); CREATININE 0.78 mg/dL (0.7-1.3)
[2018-04-11 04:50] LABS: ALKALINE PHOSPHATASE 102 U/L (45-117); BILIRUBIN,TOTAL 0.6 mg/dL (0.2-1.0); TOTAL PROTEIN 6.6 g/dL (6.4-8.2)
[2018-04-11 05:08] LABS: BASOPHILS # (AUTO) 0.01 x10^3/uL (0-0.1); BASOPHILS % (AUTO) 0 % (0-1); EOSINOPHILS # (AUTO) 0.02 x10^3/uL (0-0.4); EOSINOPHILS % (AUTO) 0 % (1-7); LYMPHOCYTES # (AUTO) 0.33 x10^3/uL (1-3.4); LYMPHOCYTES % (AUTO) 7 % (22-44); MD NO; MEAN CORPUSCULAR HEMOGLOBIN 32.4 pg (27.5-34.5); MEAN CORPUSCULAR HGB CONC 33.7 g/dL (33.2-36.2); MEAN CORPUSCULAR VOLUME 96.3 fL (81-97); MEAN PLATELET VOLUME 9.4 fL (7.4-10.4); MONOCYTES # (AUTO) 0.03 x10^3/uL (0.2-0.8); MONOCYTES % (AUTO) 1 % (2-9); NEUTROPHILS # (AUTO) 4.57 x10^3/uL (1.8-6.8); NEUTROPHILS % (AUTO) 92 % (42-75); PLATELET COUNT 158 x10^3/uL (130-400); RED BLOOD COUNT 4.51 x10^6/uL (4.38-5.82); RED CELL DISTRIBUTION WIDTH 13.4 % (9.4-14.8)
[2018-04-11] MEDS: SODIUM CHLORIDE 0.9% 1,000 ML IV SCH (09:00)
[2018-04-11] MEDS ORDERED: SODIUM CHLORIDE 0.9% 1,000 ML IV SCH (10:30)
[2018-04-11] MEDS ORDERED: SODIUM CHLORIDE 0.9% 1,000 ML IV ONE (10:30)
[2018-04-11] MEDS: DOXYCYCLINE 100 MG in DEXTROSE 5% 250 ML IV SCH ×2 (11:17→21:37)
[2018-04-11] MEDS: ENOXAPARIN 40 MG/0.4 ML SQ SCH (21:37)
[2018-04-12] MEDS: ALBUTEROL/IPRATROPIUM 2.5MG/0.5MG, 3 ML INLINE SCH ×2 (03:47→07:00)
[2018-04-12 04:10] VITALS: BP 107/63
[2018-04-12 04:54] LABS: BASOPHILS # (AUTO) 0.05 x10^3/uL (0-0.1); BASOPHILS % (AUTO) 1 % (0-1); EOSINOPHILS % (AUTO) 0 % (1-7); LYMPHOCYTES # (AUTO) 0.43 x10^3/uL (1-3.4); LYMPHOCYTES % (AUTO) 6 % (22-44); MD NO; MEAN CORPUSCULAR HEMOGLOBIN 31.2 pg (27.5-34.5); MEAN CORPUSCULAR HGB CONC 32.4 g/dL (33.2-36.2); MEAN CORPUSCULAR VOLUME 96.4 fL (81-97); MONOCYTES # (AUTO) 0.28 x10^3/uL (0.2-0.8); MONOCYTES % (AUTO) 4 % (2-9); NEUTROPHILS % (AUTO) 90 % (42-75); PLATELET COUNT 170 x10^3/uL (130-400); RED BLOOD COUNT 4.23 x10^6/uL (4.38-5.82); RED CELL DISTRIBUTION WIDTH 13.1 % (9.4-14.8)
[2018-04-12] MEDS: methylPREDNISolone SOD SUCC 125 MG/2 ML IVPush SCH ×4 (04:58→22:38)
[2018-04-12] MEDS: MIDAZOLAM HCL 25 MG in SODIUM CHLORIDE 0.9% 245 ML IV PRN (04:58)
[2018-04-12 05:24] LABS: CHLORIDE 107 mmol/L (98-107)
[2018-04-12 05:33] LABS: ALANINE AMINOTRANSFERASE 48 U/L (12-78); ALKALINE PHOSPHATASE 83 U/L (45-117); ANION GAP 6 mmol/L (5-15); BILIRUBIN,TOTAL 0.4 mg/dL (0.2-1.0); CALCIUM 8.4 mg/dL (8.5-10.1); CREATININE 0.66 mg/dL (0.7-1.3)
[2018-04-12] MEDS ORDERED: ALBUTEROL/IPRATROPIUM 2.5MG/0.5MG, 3 ML ONE (09:26)
[2018-04-12] MEDS: DOXYCYCLINE 100 MG in DEXTROSE 5% 250 ML IV SCH ×2 (10:11→22:38)
[2018-04-12] MEDS: ALBUTEROL/IPRATROPIUM 2.5MG/0.5MG, 3 ML NPPB SCH ×3 (10:25→19:38)
[2018-04-12] MEDS: ENOXAPARIN 40 MG/0.4 ML SQ SCH (22:39)
[2018-04-13 04:24] LABS: BASOPHILS % (AUTO) 0 % (0-1); EOSINOPHILS # (AUTO) 0.04 x10^3/uL (0-0.4); EOSINOPHILS % (AUTO) 0 % (1-7); LYMPHOCYTES # (AUTO) 0.52 x10^3/uL (1-3.4); LYMPHOCYTES % (AUTO) 5 % (22-44); MD NO; MEAN CORPUSCULAR HEMOGLOBIN 31.7 pg (27.5-34.5); MEAN CORPUSCULAR HGB CONC 33.4 g/dL (33.2-36.2); MEAN PLATELET VOLUME 9.2 fL (7.4-10.4); MONOCYTES # (AUTO) 0.13 x10^3/uL (0.2-0.8); MONOCYTES % (AUTO) 1 % (2-9); NEUTROPHILS # (AUTO) 10.89 x10^3/uL (1.8-6.8); NEUTROPHILS % (AUTO) 94 % (42-75); PLATELET COUNT 179 x10^3/uL (130-400); RED BLOOD COUNT 4.31 x10^6/uL (4.38-5.82); RED CELL DISTRIBUTION WIDTH 13.1 % (9.4-14.8)
[2018-04-13 05:00] VITALS: BP 119/72
[2018-04-13] MEDS: methylPREDNISolone SOD SUCC 125 MG/2 ML IVPush SCH (05:25)
[2018-04-13] MEDS: ALBUTEROL/IPRATROPIUM 2.5MG/0.5MG, 3 ML NPPB SCH ×4 (06:35→19:34)
[2018-04-13] MEDS: methylPREDNISolone SOD SUCC 40 MG/ML IVPush SCH ×2 (13:20→20:55)
[2018-04-13] MEDS: ENOXAPARIN 40 MG/0.4 ML SQ SCH (20:56)
[2018-04-14 04:00] VITALS: BP 111/77
[2018-04-14] MEDS: methylPREDNISolone SOD SUCC 40 MG/ML IVPush SCH ×2 (05:33→12:52)
[2018-04-14 06:01] LABS: BASOPHILS % (AUTO) 0 % (0-1); EOSINOPHILS % (AUTO) 0 % (1-7); LYMPHOCYTES # (AUTO) 0.62 x10^3/uL (1-3.4); LYMPHOCYTES % (AUTO) 6 % (22-44); MD NO; MEAN CORPUSCULAR HEMOGLOBIN 32.2 pg (27.5-34.5); MEAN CORPUSCULAR HGB CONC 33.3 g/dL (33.2-36.2); MEAN CORPUSCULAR VOLUME 96.5 fL (81-97); MONOCYTES # (AUTO) 0.54 x10^3/uL (0.2-0.8); MONOCYTES % (AUTO) 5 % (2-9); NEUTROPHILS # (AUTO) 9.25 x10^3/uL (1.8-6.8); NEUTROPHILS % (AUTO) 89 % (42-75); PLATELET COUNT 185 x10^3/uL (130-400); RED BLOOD COUNT 4.64 x10^6/uL (4.38-5.82); RED CELL DISTRIBUTION WIDTH 13.1 % (9.4-14.8)
[2018-04-14] MEDS: ALBUTEROL/IPRATROPIUM 2.5MG/0.5MG, 3 ML NPPB SCH ×2 (06:14→10:07)
[2018-04-14] MEDS ORDERED: ETOMIDATE 20 MG/10 ML ONE (08:00)
[2018-04-14] MEDS ORDERED: PROPOFOL 10 MG/ML, 100ML IV ONE (08:00)
[2018-04-14] MEDS ORDERED: MIDAZOLAM 1 MG/ML, 5ML ONE (08:00)
[2018-04-14] MEDS ORDERED: SUCCINYLCHOLINE 20 MG/ML, 10ML ONE (08:00)
[2018-04-14 08:28] VITALS: BP 121/86
[2018-04-14 12:16] VITALS: BP 117/76
[2018-04-14] MEDS ORDERED: PRED20TA PO (13:16)
[2018-04-14] MEDS ORDERED: DOXY100T PO (13:16)
== END 2018-04-14 14:50 | disposition home or self-care (01) | DRG 208 ==
LOC: SUATTDRO 20:21 → ED 20:31 → EDIP 20:32 → CCU 21:02 → 4WST 04-14 06:59 → DCLOUNGE 04-14 14:44
PROVIDERS: ADMIT Hospitalist; ATTEND Hospitalist
PROC: 5A1945Z Respiratory Ventilation, 24-96 Consecutive Hours (ICD-10-PCS; principal; 2018-04-10)
PROC: 0BH17EZ Insertion of Endotracheal Airway into Trachea, Via Natural or Artificial Opening (ICD-10-PCS; 2018-04-10)
DX: J44.1 Chronic obstructive pulmonary disease with (acute) exacerbation (principal); J96.21 Acute and chronic respiratory failure with hypoxia; J96.22 Acute and chronic respiratory failure with hypercapnia; E87.2 Acidosis; Z99.11 Dependence on respirator [ventilator] status; F15.10 Other stimulant abuse, uncomplicated; J40 Bronchitis, not specified as acute or chronic; B19.20 Unspecified viral hepatitis C without hepatic coma; I10 Essential (primary) hypertension; Z86.74 Personal history of sudden cardiac arrest; Z91.19 Patient's noncompliance with other medical treatment and regimen; Z87.891 Personal history of nicotine dependence
CPT/HCPCS: 31500; 36415; 36600; 99291; J7620; 71045; 80048; 80053; 80307; 82040; 82803; 83735; 83880; 84100; 84478; 84484; 85025; 87081; 93005; 94002; 94003; 94150; 94640; 96374; 96375; J0696; J1170; J1650; J2250; J2704; J7060; J0330; J2920; J2930; J7030; J7050; J7512

== ENCOUNTER 2018-07-03 01:59 | Inpatient (IN) | payer MEDICAID ==
[~2018-07-03] VITALS: Ht 175.3 cm; Wt 70.8 kg
[~2018-07-03 01:59] MED LIST changes: +ETOMIDATE 40 MG/20 ML ONE; +MIDAZOLAM 1 MG/ML, 5ML ONE; +PROPOFOL 10 MG/ML, 100ML IV ONE; +SUCCINYLCHOLINE 20 MG/ML, 10ML ONE
[2018-07-03] MEDS ORDERED: IPRATROPIUM 0.5 MG/2.5 ML INHA NPPB ONE (02:00)
[2018-07-03] MEDS ORDERED: SODIUM CHLORIDE FLUSH 10ML SYR IVF ONE (02:00)
[2018-07-03] MEDS ORDERED: methylPREDNISolone SOD SUCC 125 MG/2 ML IVP ONE (02:00)
[2018-07-03] MEDS ORDERED: ALBUTEROL 0.5%, 20ML NPPB SCH (02:00)
[2018-07-03] MEDS ORDERED: SODIUM CHLORIDE 0.9% 1,000ML IVBOLUS ONE ×2 (02:00→03:30)
[2018-07-03] MEDS ORDERED: MAGNESIUM SULFATE PMX 2GM/50ML 50 ML IV ONE (02:00)
[2018-07-03] MEDS ORDERED: methylPREDNISolone SOD SUCC 125 MG/2 ML ONE (02:09)
[2018-07-03] MEDS ORDERED: PROPOFOL 100 ML IV PRN (02:30)
[2018-07-03] MEDS ORDERED: FENTANYL PF 100 MCG/2ML IV ONE (02:30)
[2018-07-03 02:33] LABS: BASOPHILS # (AUTO) 0.09 x10^3/uL (0-0.1); BASOPHILS % (AUTO) 1 % (0-1); EOSINOPHILS # (AUTO) 1.14 x10^3/uL (0-0.4); EOSINOPHILS % (AUTO) 14 % (1-7); LYMPHOCYTES # (AUTO) 2.73 x10^3/uL (1-3.4); LYMPHOCYTES % (AUTO) 33 % (22-44); MD NO; MEAN CORPUSCULAR HEMOGLOBIN 31.9 pg (27.5-34.5); MEAN CORPUSCULAR HGB CONC 33.1 g/dL (33.2-36.2); MEAN CORPUSCULAR VOLUME 96.4 fL (81-97); MEAN PLATELET VOLUME 8.7 fL (7.4-10.4); MONOCYTES # (AUTO) 0.86 x10^3/uL (0.2-0.8); MONOCYTES % (AUTO) 11 % (2-9); NEUTROPHILS # (AUTO) 3.36 x10^3/uL (1.8-6.8); NEUTROPHILS % (AUTO) 41 % (42-75); PLATELET COUNT 214 x10^3/uL (130-400); RED CELL DISTRIBUTION WIDTH 13.1 % (9.4-14.8)
[2018-07-03] MEDS: MIDAZOLAM HCL 25 MG in SODIUM CHLORIDE 0.9% 245 ML IV PRN ×3 (02:42→06:17)
[2018-07-03] MEDS ORDERED: SUCCINYLCHOLINE 20 MG/ML, 10ML IVPush ONE (03:00)
[2018-07-03] MEDS ORDERED: ETOMIDATE 20 MG/10 ML IV ONE (03:00)
[2018-07-03 03:03] LABS: ALANINE AMINOTRANSFERASE 70 U/L (12-78); ALBUMIN 3.9 g/dL (3.4-5.0); ANION GAP 12 mmol/L (5-15); CHLORIDE 109 mmol/L (98-107); CREATININE 1.02 mg/dL (0.7-1.3)
[2018-07-03 03:07] LABS: ALKALINE PHOSPHATASE 112 U/L (45-117); BILIRUBIN,TOTAL 0.4 mg/dL (0.2-1.0); TOTAL PROTEIN 7.9 g/dL (6.4-8.2); TROPONIN I < 0.015 ng/mL (0.000-0.045)
[2018-07-03] MEDS ORDERED: CEFTRIAXONE 1,000 MG in SODIUM CHLORIDE 0.9% 50 ML IVPB ONE (03:30)
[2018-07-03] MEDS ORDERED: CEFTRIAXONE PMX 1GM/50ML 50 ML ONE (03:30)
[2018-07-03] MEDS ORDERED: AZITHROMYCIN 500 MG in SODIUM CHLORIDE 0.9% 250 ML IV ONE (03:30)
[2018-07-03 03:34] LABS: MICROSCOPIC INDICATED
[2018-07-03 03:45] LABS: CULTURE INDICATED? NO
[2018-07-03 03:51] LABS: AMPHETAMINE SCREEN, URINE Positive (Negative); BARBITURATE SCREEN, URINE Negative (Negative); BENZODIAZEPINE SCREEN, URINE Negative (Negative); CANNABINOID SCREEN, URINE Negative (Negative); COCAINE SCREEN, URINE Negative (Negative); METHADONE SCREEN, URINE Negative (Negative); OPIATE SCREEN, URINE Negative (Negative)
[2018-07-03] MEDS ORDERED: FENTANYL PF 100 MCG/2ML ONE (03:51)
[2018-07-03] MEDS ORDERED: MIDAZOLAM HCL 25 MG in SODIUM CHLORIDE 0.9% 245 ML IV PRN (04:58)
[2018-07-03] MEDS ORDERED: DOCUSATE 100 MG CAPSULE PO PRN (05:00)
[2018-07-03] MEDS ORDERED: POLYETHYLENE GLYCOL 17 GM PACKET PO PRN (05:00)
[2018-07-03] MEDS ORDERED: ONDANSETRON 2MG/ML, 2ML IVPush PRN (05:00)
[2018-07-03] MEDS ORDERED: ACETAMINOPHEN 325 MG TABLET PO PRN (05:00)
[2018-07-03] MEDS ORDERED: LABETALOL 5MG/ML, 20ML IVPush PRN (05:00)
[2018-07-03] MEDS ORDERED: BISACODYL 10 MG SUPP PR PRN (05:00)
[2018-07-03] MEDS ORDERED: morphine SULFATE 10 MG/ML, 1ML IVPush PRN (05:00)
[2018-07-03] MEDS ORDERED: LIDOCAINE-MPF 1%, 2ML ENDO PRN (05:00)
[2018-07-03] MEDS ORDERED: PROMETHAZINE 25 MG/ML, 1ML IM PRN (05:00)
[2018-07-03] MEDS ORDERED: PHARMACY MAY ADJ FOR RENAL FX MC SCH (05:00)
[2018-07-03] MEDS ORDERED: OXYcodone IR 5MG TABLET PO PRN (05:00)
[2018-07-03] MEDS ORDERED: GABAPENTIN 300 MG CAPSULE PO PRN (05:00)
[2018-07-03] MEDS: methylPREDNISolone SOD SUCC 125 MG/2 ML IVPush SCH ×3 (05:00→16:49)
[2018-07-03] MEDS ORDERED: ONDANSETRON ODT 4 MG PO PRN (05:00)
[2018-07-03] MEDS ORDERED: hydrALAzine 20 MG/ML, 1ML IVPush PRN (05:00)
[2018-07-03] MEDS: DOXYCYCLINE 100 MG in DEXTROSE 5% 250 ML IV SCH ×2 (05:34→16:49)
[2018-07-03] MEDS ORDERED: HEPARIN 5,000 UNITS/ML, 1ML ONE (05:45)
[2018-07-03] MEDS: HEPARIN 5,000 UNITS/ML, 1ML SQ SCH ×3 (05:46→21:05)
[2018-07-03 05:54] LABS: FREE T4 (FREE THYROXINE) 1.16 ng/dL (0.76-1.46); THYROID STIMULATING HORMONE 0.697 mIU/L (0.358-3.740)
[2018-07-03] MEDS: SODIUM CHLORIDE 0.9% 1,000 ML IV SCH ×2 (06:59→15:00)
[2018-07-03] MEDS: ALBUTEROL/IPRATROPIUM 2.5MG/0.5MG, 3 ML NPPB SCH ×5 (07:00→23:17)
[2018-07-03] MEDS: FAMOTIDINE 20 MG/2 ML IVPush SCH ×2 (11:44→21:05)
[2018-07-03] MEDS ORDERED: MIDAZOLAM HCL 50 MG in SODIUM CHLORIDE 0.9% 240 ML IV PRN (13:00)
[2018-07-03] MEDS: MIDAZOLAM HCL 50 MG in SODIUM CHLORIDE 0.9% 240 ML IV PRN (21:17)
[2018-07-04] MEDS: methylPREDNISolone SOD SUCC 125 MG/2 ML IVPush SCH ×5 (00:14→22:49)
[2018-07-04] MEDS: ALBUTEROL/IPRATROPIUM 2.5MG/0.5MG, 3 ML NPPB SCH ×6 (02:59→21:58)
[2018-07-04] MEDS: MIDAZOLAM HCL 50 MG in SODIUM CHLORIDE 0.9% 240 ML IV PRN ×2 (03:27→15:09)
[2018-07-04 04:00] VITALS: BP 100/55
[2018-07-04 04:36] LABS: ALBUMIN 2.8 g/dL (3.4-5.0); ANION GAP 9 mmol/L (5-15); CALCIUM 8.2 mg/dL (8.5-10.1); CHLORIDE 112 mmol/L (98-107)
[2018-07-04 04:41] LABS: ALANINE AMINOTRANSFERASE 44 U/L (12-78); ALKALINE PHOSPHATASE 78 U/L (45-117); BILIRUBIN,TOTAL 0.4 mg/dL (0.2-1.0); CHOL/HDL RATIO 2.9; CHOLESTEROL, TOTAL 135 mg/dL (140-239); CREATININE 0.71 mg/dL (0.7-1.3); HDL CHOL % 35 % (26-37); HDL CHOLESTEROL (DIRECT) 47 mg/dL (40-60); LDL CHOLESTEROL,CALCULATED 75 mg/dL (54-169); LDL/HDL RATIO 1.6 (0.5-3.0); TOTAL PROTEIN 5.8 g/dL (6.4-8.2); TRIGLYCERIDES 67 mg/dL (50-200); VLDL CHOLESTEROL 13 mg/dL (0-25)
[2018-07-04] MEDS: HEPARIN 5,000 UNITS/ML, 1ML SQ SCH ×3 (05:00→20:20)
[2018-07-04] MEDS: DOXYCYCLINE 100 MG in DEXTROSE 5% 250 ML IV SCH ×2 (05:28→17:42)
[2018-07-04 06:24] LABS: BASOPHILS # (AUTO) 0.01 x10^3/uL (0-0.1); BASOPHILS % (AUTO) 0 % (0-1); EOSINOPHILS # (AUTO) 0.01 x10^3/uL (0-0.4); EOSINOPHILS % (AUTO) 0 % (1-7); LYMPHOCYTES # (AUTO) 0.55 x10^3/uL (1-3.4); LYMPHOCYTES % (AUTO) 9 % (22-44); MD NO; MEAN CORPUSCULAR HGB CONC 33.4 g/dL (33.2-36.2); MEAN CORPUSCULAR VOLUME 95.9 fL (81-97); MEAN PLATELET VOLUME 9.3 fL (7.4-10.4); MONOCYTES # (AUTO) 0.22 x10^3/uL (0.2-0.8); MONOCYTES % (AUTO) 4 % (2-9); NEUTROPHILS # (AUTO) 5.32 x10^3/uL (1.8-6.8); NEUTROPHILS % (AUTO) 87 % (42-75); PLATELET COUNT 138 x10^3/uL (130-400); RED BLOOD COUNT 4.12 x10^6/uL (4.38-5.82); RED CELL DISTRIBUTION WIDTH 13.3 % (9.4-14.8)
[2018-07-04] MEDS: FAMOTIDINE 20 MG/2 ML IVPush SCH ×2 (09:28→20:20)
[2018-07-04] MEDS ORDERED: FENTANYL PF 2,500 MCG in SODIUM CHLORIDE 0.9% 200 ML IV PRN (10:00)
[2018-07-05] MEDS: MIDAZOLAM HCL 50 MG in SODIUM CHLORIDE 0.9% 240 ML IV PRN (01:23)
[2018-07-05] MEDS: ALBUTEROL/IPRATROPIUM 2.5MG/0.5MG, 3 ML NPPB SCH ×3 (02:16→10:38)
[2018-07-05 04:00] VITALS: BP 110/73
[2018-07-05 04:42] LABS: BASOPHILS # (AUTO) 0.04 x10^3/uL (0-0.1); BASOPHILS % (AUTO) 1 % (0-1); EOSINOPHILS % (AUTO) 0 % (1-7); LYMPHOCYTES # (AUTO) 0.35 x10^3/uL (1-3.4); LYMPHOCYTES % (AUTO) 5 % (22-44); MD NO; MEAN CORPUSCULAR HEMOGLOBIN 31.9 pg (27.5-34.5); MEAN CORPUSCULAR HGB CONC 33.4 g/dL (33.2-36.2); MEAN CORPUSCULAR VOLUME 95.5 fL (81-97); MEAN PLATELET VOLUME 9.2 fL (7.4-10.4); MONOCYTES % (AUTO) 3 % (2-9); NEUTROPHILS # (AUTO) 6.81 x10^3/uL (1.8-6.8); NEUTROPHILS % (AUTO) 92 % (42-75); PLATELET COUNT 126 x10^3/uL (130-400); RED BLOOD COUNT 4.06 x10^6/uL (4.38-5.82); RED CELL DISTRIBUTION WIDTH 13.6 % (9.4-14.8)
[2018-07-05 04:53] LABS: ALBUMIN 2.7 g/dL (3.4-5.0); ANION GAP 5 mmol/L (5-15); CALCIUM 7.9 mg/dL (8.5-10.1); CHLORIDE 107 mmol/L (98-107); CREATININE 0.71 mg/dL (0.7-1.3)
[2018-07-05] MEDS: DOXYCYCLINE 100 MG in DEXTROSE 5% 250 ML IV SCH (05:47)
[2018-07-05] MEDS: HEPARIN 5,000 UNITS/ML, 1ML SQ SCH ×2 (05:48→13:00)
[2018-07-05] MEDS: methylPREDNISolone SOD SUCC 125 MG/2 ML IVPush SCH ×2 (05:48→12:13)
[2018-07-05] MEDS: FAMOTIDINE 20 MG/2 ML IVPush SCH (08:08)
[2018-07-05] MEDS ORDERED: ALBUTEROL/IPRATROPIUM 2.5MG/0.5MG, 3 ML NPPB PRN (15:00)
[2018-07-05] MEDS ORDERED: DOXY100T PO (16:32)
[2018-07-05] MEDS ORDERED: PRED10TA PO (16:32)
[2018-07-05] MEDS ORDERED: ALBU8.5H8 INH (16:32)
== END 2018-07-05 15:35 | disposition left against medical advice (07) | DRG 208 ==
LOC: ED 02:03 → EDIP 03:00 → ICU 07:18
PROVIDERS: ADMIT Internal Medicine; ATTEND Internal Medicine
PROC: 0BH17EZ Insertion of Endotracheal Airway into Trachea, Via Natural or Artificial Opening (ICD-10-PCS; principal; 2018-07-03)
PROC: 5A1945Z Respiratory Ventilation, 24-96 Consecutive Hours (ICD-10-PCS; 2018-07-03)
DX: J96.21 Acute and chronic respiratory failure with hypoxia (principal); J44.1 Chronic obstructive pulmonary disease with (acute) exacerbation; E87.2 Acidosis; G93.40 Encephalopathy, unspecified; Z99.11 Dependence on respirator [ventilator] status; J96.22 Acute and chronic respiratory failure with hypercapnia; B18.2 Chronic viral hepatitis C; F15.10 Other stimulant abuse, uncomplicated; F17.200 Nicotine dependence, unspecified, uncomplicated; I10 Essential (primary) hypertension; Z53.21 Procedure and treatment not carried out due to patient leaving prior to being seen by health care provider; J98.4 Other disorders of lung; Z86.74 Personal history of sudden cardiac arrest; Z91.14 Patient's other noncompliance with medication regimen
CPT/HCPCS: 31500; 36415; 36600; 99291; J3490; J7620; S0028; 71045; 80048; 80053; 80061; 80307; 81001; 82040; 82803; 83036; 83605; 83735; 83880; 84100; 84439; 84443; 84478; 84484; 85025; 87040; 87070; 87081; 87107; 87205; 93005; 94002; 94003; 94640; 96365; 96366; 96368; 96375; G0378; J0456; J0696; J1644; J2250; J2704; J3010; J7060; J0330; J2270; J2930; J3475; J7030; J7050

== ENCOUNTER 2018-08-31 04:12 | Emergency (ER) | payer MEDICAID ==
[~2018-08-31] VITALS: Ht 182.9 cm; Wt 67.8 kg
[~2018-08-31 04:12] MED LIST changes: -ETOMIDATE 40 MG/20 ML ONE; -MIDAZOLAM 1 MG/ML, 5ML ONE; -PROPOFOL 10 MG/ML, 100ML IV ONE; -SUCCINYLCHOLINE 20 MG/ML, 10ML ONE
[2018-08-31] MEDS ORDERED: methylPREDNISolone SOD SUCC 125 MG/2 ML ONE (04:48)
[2018-08-31] MEDS ORDERED: ALBUTEROL/IPRATROPIUM 2.5MG/0.5MG, 3 ML NPPB SCH (05:00)
[2018-08-31] MEDS ORDERED: SODIUM CHLORIDE FLUSH 10ML SYR IVF ONE (05:00)
[2018-08-31] MEDS ORDERED: methylPREDNISolone SOD SUCC 125 MG/2 ML IVP ONE (05:00)
--- NOTE | 2018-08-31 05:06 | NUR ---
IV STARTED. ORDERED MEDS GIVEN. PT VSS, SEE CHARTED, HR IMPROVING. PT IN HOSPITAL GOWN. NAD NOTED AT THIS TIME. PT IN HIGH FOWLERS POSITION IN [facility]. PT SATING 96% ON 2L N/C. PT ON CARDIAC AND VITALS MONITOR.S BILAT BEDRAILS UP, CALL LIGHT WITHIN REACH. WILL CONTINUE TO MONITOR.
[2018-08-31 05:07] LABS: BASOPHILS # (AUTO) 0.12 x10^3/uL (0-0.1); BASOPHILS % (AUTO) 2 % (0-1); EOSINOPHILS # (AUTO) 0.83 x10^3/uL (0-0.4); EOSINOPHILS % (AUTO) 12 % (1-7); LYMPHOCYTES % (AUTO) 15 % (22-44); MD NO; MEAN CORPUSCULAR HEMOGLOBIN 31.5 pg (27.5-34.5); MEAN CORPUSCULAR HGB CONC 32.9 g/dL (33.2-36.2); MEAN CORPUSCULAR VOLUME 95.6 fL (81-97); MEAN PLATELET VOLUME 8.9 fL (7.4-10.4); MONOCYTES # (AUTO) 0.72 x10^3/uL (0.2-0.8); MONOCYTES % (AUTO) 11 % (2-9); NEUTROPHILS # (AUTO) 4.22 x10^3/uL (1.8-6.8); NEUTROPHILS % (AUTO) 61 % (42-75); PLATELET COUNT 247 x10^3/uL (130-400); RED CELL DISTRIBUTION WIDTH 13.6 % (9.4-14.8)
[2018-08-31] MEDS ORDERED: ALBUTEROL/IPRATROPIUM 2.5MG/0.5MG, 3 ML ONE ×2 (05:15→06:12)
[2018-08-31 05:19] LABS: ALBUMIN 3.8 g/dL (3.4-5.0); ANION GAP 6 mmol/L (5-15); CHLORIDE 105 mmol/L (98-107); CREATININE 1.11 mg/dL (0.7-1.3)
[2018-08-31 05:22] LABS: TROPONIN I < 0.015 ng/mL (0.000-0.045)
--- NOTE | 2018-08-31 05:44 | NUR ---
PT RESTING IN BED CALMLY ON PHONE. NO NEEDS AT THIS TIME.
--- NOTE | 2018-08-31 05:46 | NUR ---
ALL RESULTS BACK. PT UP FOR RECHECK.
[2018-08-31] MEDS ORDERED: ALBUTEROL/IPRATROPIUM 2.5MG/0.5MG, 3 ML NPPB ONE (06:00)
--- NOTE | 2018-08-31 06:15 | NUR ---
PT RECEIVING SECOND BREATHING TX
--- NOTE | 2018-08-31 06:54 | NUR ---
PT RESTING COMFORTABLY IN BED. PT SATING 89% ON RA AT THIS TIME. BEDSIDE REPORT TO THALIA TINAJERO.
--- NOTE | 2018-08-31 07:11 | NUR ---
PT RESTING ON GURNEY CONNECTED TO ALL MONITORS. NADN. ALL SAFETY MEASURES IN PLACE. PT DENIES PAIN. PT PROVIDED CALL LIGHT AND IS WATCHING TV. NO NEEDS EXPRESSED AT THIS TIME.
[2018-08-31 07:54] VITALS: BP 138/81
--- NOTE | 2018-08-31 07:54 | NUR ---
Patient given discharge instructions and they have confirmed that they understand the instructions. Patient ambulatory with steady gait. PT STATES HE HAS A NEBULIZER AT HOME. PT LEFT WITH ALL PERSONAL BELONGINGS, DISCHARGE PAPERWORK, AND PRESCRIPTIONS.
== END 2018-08-31 07:56 | disposition home or self-care (01) ==
LOC: ED 06:14
DX: J44.1 Chronic obstructive pulmonary disease with (acute) exacerbation (principal); F17.210 Nicotine dependence, cigarettes, uncomplicated
CPT/HCPCS: 36415; 71045; 80048; 82040; 83880; 84484; 85025; 93005; 94640; 96374; 99284; J2930; J7620

== ENCOUNTER 2018-09-04 04:45 | Inpatient (IN) | payer MEDICAID ==
[~2018-09-04] VITALS: Ht 182.9 cm; Wt 71.4 kg
--- NOTE | 2018-09-04 04:45 | NUR ---
IV STARTED UPON ARRIVAL NONE PLACED PRIOR.
--- NOTE | 2018-09-04 04:45 | NUR ---
PT ARRVIES VIA [facility], WELL KNOWN TO THIS ER REQUIRING FREQUENT INTUBATION, PT CALLED FOR SIGNIFICANT RESP DISTRESS. PT BEING BAGGED ON ARRIVAL, NON VERBAL AT THIS TIME, DR JULES TO ROOM AND PT MEDICATED WITH ETOMIDATE 20MG AND SUCC 120MG WITH GOOD SEDATION, INTUBATED WITH 7.5 ET TUBE, GOOD COLOR CHANGE CO2 DETECTOR, EQUAL RISE AND FALL CHEST, BREATH SOUNDS REMARKABLY DIMINISHED HOWEVER PRESENT. CXR ORDERED. RT SECURE TUBE AND WILL PLACE TEJEDA AND OG TUBE.
[2018-09-04] MEDS ORDERED: ALBUTEROL SULFATE 2.5MG/0.5ML ONE (04:52)
[2018-09-04] MEDS ORDERED: ETOMIDATE 20 MG/10 ML IVPush ONE (05:00)
[2018-09-04] MEDS ORDERED: SUCCINYLCHOLINE 20 MG/ML, 10ML IVPush ONE (05:00)
--- NOTE | 2018-09-04 05:00 | NUR ---
18 YI OG PLACED BY BRODIE RN, PLACEMENT CONFIRMED BY ASPIRATION AND AUSCULTATION. AWAIT CXR. 16 YI TEJEDA PLACED BY ALEXUS TINAJERO. TEMP PROBE TEJEDA.
[2018-09-04] MEDS: MIDAZOLAM HCL 25 MG in SODIUM CHLORIDE 0.9% 245 ML IV PRN ×2 (05:05→08:46)
--- NOTE | 2018-09-04 05:12 | NUR ---
CXR DONE AT THIS TIME.
--- NOTE | 2018-09-04 05:13 | NUR ---
BLACK CELL PHONE, POCKET KNIFE, TIMEX WATCH, AND RED INHALER INSIDE RED BAG WITH PATIENT LABEL.
[2018-09-04 05:22] LABS: BASOPHILS # (AUTO) 0.15 x10^3/uL (0-0.1); BASOPHILS % (AUTO) 2 % (0-1); EOSINOPHILS # (AUTO) 1.55 x10^3/uL (0-0.4); EOSINOPHILS % (AUTO) 16 % (1-7); LYMPHOCYTES % (AUTO) 23 % (22-44); MD NO; MEAN CORPUSCULAR HEMOGLOBIN 31.6 pg (27.5-34.5); MEAN CORPUSCULAR HGB CONC 32.8 g/dL (33.2-36.2); MEAN CORPUSCULAR VOLUME 96.2 fL (81-97); MEAN PLATELET VOLUME 8.9 fL (7.4-10.4); MONOCYTES # (AUTO) 0.89 x10^3/uL (0.2-0.8); MONOCYTES % (AUTO) 9 % (2-9); NEUTROPHILS # (AUTO) 4.77 x10^3/uL (1.8-6.8); NEUTROPHILS % (AUTO) 50 % (42-75); PLATELET COUNT 257 x10^3/uL (130-400); RED BLOOD COUNT 5.23 x10^6/uL (4.38-5.82); RED CELL DISTRIBUTION WIDTH 13.5 % (9.4-14.8)
[2018-09-04 05:27] LABS: ALANINE AMINOTRANSFERASE 62 U/L (12-78); ALBUMIN 3.9 g/dL (3.4-5.0); ANION GAP 6 mmol/L (5-15); CHLORIDE 107 mmol/L (98-107); CREATININE 1.11 mg/dL (0.7-1.3)
[2018-09-04 05:31] LABS: ALKALINE PHOSPHATASE 119 U/L (45-117); BILIRUBIN,TOTAL 0.4 mg/dL (0.2-1.0); TOTAL PROTEIN 7.5 g/dL (6.4-8.2); TROPONIN I < 0.015 ng/mL (0.000-0.045)
--- NOTE | 2018-09-04 05:55 | NUR ---
ASSUMED CARE FOR THIS PT. PT ON VERSED DRIP ON VENT AND HR AT 135.
--- NOTE | 2018-09-04 06:21 | NUR ---
NG TUBE ADVANCED APPROX 8CM. TUBE CONTINUES TO PRODUCE GASTRIC CONTENTS. ALSO CONFIRMED VIA AUSCULTATION.
--- NOTE | 2018-09-04 07:00 | NUR ---
SBAR RPT REC'D FROM LIOR BLACKBURN. ASSUMED PT CARE. PT ON VENTILATOR, SEDATED VERSED GTT CONFIRMED AT 7MG/HR. BILAT WRIST RESTRAINTS IN PLACE. PT ASSESSMENT NOTED.
[2018-09-04] MEDS ORDERED: POLYETHYLENE GLYCOL 17 GM PACKET PO PRN (08:00)
[2018-09-04] MEDS ORDERED: BISACODYL 10 MG SUPP PR PRN ×2 (08:00→11:00)
[2018-09-04] MEDS ORDERED: morphine SULFATE 10 MG/ML, 1ML IVPush PRN (08:00)
[2018-09-04] MEDS ORDERED: ENALAPRILAT 1.25 MG/ML, 2ML IVPush PRN (08:00)
[2018-09-04] MEDS ORDERED: OXYcodone IR 5MG TABLET PO PRN (08:00)
[2018-09-04] MEDS ORDERED: ONDANSETRON ODT 4 MG PO PRN (08:00)
[2018-09-04] MEDS ORDERED: ONDANSETRON 2MG/ML, 2ML IVPush PRN (08:00)
[2018-09-04] MEDS ORDERED: LABETALOL 5MG/ML, 20ML IVPush PRN (08:00)
[2018-09-04] MEDS ORDERED: LORazepam 2 MG/ML, 1ML IVPush PRN (08:00)
[2018-09-04] MEDS ORDERED: ACETAMINOPHEN 325 MG TABLET PO PRN (08:00)
[2018-09-04] MEDS: SODIUM CHLORIDE 0.9% 1,000 ML IV SCH ×2 (08:40→22:13)
[2018-09-04] MEDS: ENOXAPARIN 40 MG/0.4 ML SQ SCH (08:41)
[2018-09-04] MEDS: FAMOTIDINE 20 MG/2 ML IVPush SCH ×2 (08:41→20:34)
[2018-09-04] MEDS: methylPREDNISolone SOD SUCC 125 MG/2 ML IVPush SCH ×3 (08:41→20:34)
[2018-09-04 08:47] LABS: FIO2 40 %
[2018-09-04] MEDS: SENNA/DOCUSATE TABLET PO SCH (09:07)
[2018-09-04] MEDS ORDERED: PROPOFOL 100 ML IV ONE (09:46)
[2018-09-04] MEDS ORDERED: SODIUM CHLORIDE 0.9% 1,000ML IVBOLUS ONE ×2 (10:00→15:00)
[2018-09-04] MEDS ORDERED: ETOMIDATE 20 MG/10 ML ONE (10:09)
[2018-09-04] MEDS ORDERED: SUCCINYLCHOLINE 20 MG/ML, 10ML ONE (10:09)
[2018-09-04] MEDS ORDERED: MIDAZOLAM 1 MG/ML, 5ML ONE (10:09)
[2018-09-04] MEDS: AMPICILLIN/SULBACTAM 3 GM in SODIUM CHLORIDE 0.9% 100 ML IV SCH ×3 (10:46→22:14)
[2018-09-04] MEDS: PROPOFOL 100 ML IV PRN ×2 (10:59→17:40)
[2018-09-04] MEDS ORDERED: FENTANYL PF 100 MCG/2ML IVPush PRN (11:00)
[2018-09-04] MEDS ORDERED: PANTOPRAZOLE 40 MG IV IV SCH (11:00)
[2018-09-04] MEDS ORDERED: LACTULOSE 20 GM/30 ML UDC NG PRN (11:00)
[2018-09-04] MEDS ORDERED: PHARMACY MAY ADJ FOR RENAL FX MC SCH (11:00)
[2018-09-04] MEDS ORDERED: MIDAZOLAM HCL 50 MG in SODIUM CHLORIDE 0.9% 240 ML IV PRN (11:00)
[2018-09-04] MEDS ORDERED: SENNOSIDES 8.8 MG/5 ML ORAL SOL NG PRN (11:00)
[2018-09-04] MEDS ORDERED: LIDOCAINE-MPF 1%, 2ML ENDO PRN (11:00)
[2018-09-04] MEDS ORDERED: SENNA/DOCUSATE TABLET NG PRN (11:00)
[2018-09-04] MEDS: ALBUTEROL/IPRATROPIUM 2.5MG/0.5MG, 3 ML INLINE SCH ×4 (11:05→22:40)
[2018-09-04 11:15] LABS: RAPID INFLUENZA A Negative (Negative); RAPID INFLUENZA B Negative (Negative)
[2018-09-04 12:02] LABS: MICROSCOPIC INDICATED
[2018-09-04 12:29] LABS: CULTURE INDICATED? NO
--- NOTE | 2018-09-04 14:15 | NUR ---
TF GOAL: w/ propofol: PROMOTE @ 70ML/HR off propofol: PROMOTE @ 80ML/HR
[2018-09-05] MEDS: methylPREDNISolone SOD SUCC 125 MG/2 ML IVPush SCH ×4 (01:55→20:24)
[2018-09-05] MEDS: ALBUTEROL/IPRATROPIUM 2.5MG/0.5MG, 3 ML INLINE SCH ×2 (01:59→06:45)
[2018-09-05] MEDS: PROPOFOL 100 ML IV PRN (04:02)
[2018-09-05 04:05] VITALS: BP 100/59
[2018-09-05 04:38] LABS: ALANINE AMINOTRANSFERASE 40 U/L (12-78); ALBUMIN 2.9 g/dL (3.4-5.0); ANION GAP 7 mmol/L (5-15); CALCIUM 7.7 mg/dL (8.5-10.1); CHLORIDE 112 mmol/L (98-107); CREATININE 0.69 mg/dL (0.7-1.3)
[2018-09-05 04:40] LABS: ALKALINE PHOSPHATASE 84 U/L (45-117); BASOPHILS # (AUTO) 0.01 x10^3/uL (0-0.1); BASOPHILS % (AUTO) 0 % (0-1); BILIRUBIN,TOTAL 0.6 mg/dL (0.2-1.0); EOSINOPHILS % (AUTO) 0 % (1-7); LYMPHOCYTES % (AUTO) 10 % (22-44); MD NO; MEAN CORPUSCULAR HEMOGLOBIN 31.2 pg (27.5-34.5); MEAN CORPUSCULAR HGB CONC 32.6 g/dL (33.2-36.2); MEAN CORPUSCULAR VOLUME 95.8 fL (81-97); MEAN PLATELET VOLUME 9.6 fL (7.4-10.4); MONOCYTES # (AUTO) 0.09 x10^3/uL (0.2-0.8); MONOCYTES % (AUTO) 2 % (2-9); NEUTROPHILS % (AUTO) 88 % (42-75); PLATELET COUNT 158 x10^3/uL (130-400); RED BLOOD COUNT 4.47 x10^6/uL (4.38-5.82); RED CELL DISTRIBUTION WIDTH 13.1 % (9.4-14.8); TOTAL PROTEIN 5.7 g/dL (6.4-8.2)
[2018-09-05] MEDS: AMPICILLIN/SULBACTAM 3 GM in SODIUM CHLORIDE 0.9% 100 ML IV SCH ×4 (05:05→22:22)
[2018-09-05] MEDS: ENOXAPARIN 40 MG/0.4 ML SQ SCH (08:55)
[2018-09-05] MEDS: SENNA/DOCUSATE TABLET PO SCH (08:55)
[2018-09-05] MEDS: FAMOTIDINE 20 MG/2 ML IVPush SCH ×2 (08:55→20:24)
[2018-09-05] MEDS: SODIUM CHLORIDE 0.9% 1,000 ML IV SCH (12:48)
[2018-09-05] MEDS: ALBUTEROL/IPRATROPIUM 2.5MG/0.5MG, 3 ML NPPB SCH ×2 (14:15→19:56)
[2018-09-06] MEDS: methylPREDNISolone SOD SUCC 125 MG/2 ML IVPush SCH ×2 (01:32→09:35)
[2018-09-06] MEDS: SODIUM CHLORIDE 0.9% 1,000 ML IV SCH ×2 (01:33→18:27)
[2018-09-06] MEDS: AMPICILLIN/SULBACTAM 3 GM in SODIUM CHLORIDE 0.9% 100 ML IV SCH ×4 (03:49→22:03)
[2018-09-06 04:00] VITALS: BP 130/78
[2018-09-06 04:42] LABS: MEAN CORPUSCULAR HEMOGLOBIN 31.9 pg (27.5-34.5); MEAN CORPUSCULAR HGB CONC 33.2 g/dL (33.2-36.2); MEAN PLATELET VOLUME 9.3 fL (7.4-10.4); PLATELET COUNT 167 x10^3/uL (130-400); RED BLOOD COUNT 4.43 x10^6/uL (4.38-5.82); RED CELL DISTRIBUTION WIDTH 13.4 % (9.4-14.8)
[2018-09-06 04:48] LABS: ANION GAP 4 mmol/L (5-15); CALCIUM 7.9 mg/dL (8.5-10.1); CHLORIDE 112 mmol/L (98-107)
[2018-09-06 04:49] LABS: CREATININE 0.53 mg/dL (0.7-1.3)
[2018-09-06 04:58] LABS: BASOPHILS % (AUTO) 0 % (0-1); EOSINOPHILS % (AUTO) 0 % (1-7); LYMPHOCYTES # (AUTO) 0.36 x10^3/uL (1-3.4); LYMPHOCYTES % (AUTO) 3 % (22-44); MD SCAN; MONOCYTES # (AUTO) 0.21 x10^3/uL (0.2-0.8); MONOCYTES % (AUTO) 2 % (2-9); NEUTROPHILS # (AUTO) 11.11 x10^3/uL (1.8-6.8); NEUTROPHILS % (AUTO) 95 % (42-75)
[2018-09-06] MEDS: ALBUTEROL/IPRATROPIUM 2.5MG/0.5MG, 3 ML NPPB SCH (07:33)
[2018-09-06] MEDS ORDERED: ALBUTEROL/IPRATROPIUM 2.5MG/0.5MG, 3 ML NPPB PRN (07:45)
[2018-09-06] MEDS: SENNA/DOCUSATE TABLET PO SCH (09:00)
[2018-09-06] MEDS: ENOXAPARIN 40 MG/0.4 ML SQ SCH (09:35)
[2018-09-06] MEDS: FAMOTIDINE 20 MG/2 ML IVPush SCH ×2 (09:47→20:45)
[2018-09-06 09:51] VITALS: BP 125/81
[2018-09-06 13:36] VITALS: BP 127/77
[2018-09-06] MEDS: methylPREDNISolone SOD SUCC 40 MG/ML IVPush SCH ×2 (15:49→23:55)
[2018-09-06 19:57] VITALS: BP 118/77
[2018-09-07 01:12] VITALS: BP 125/81
[2018-09-07] MEDS: AMPICILLIN/SULBACTAM 3 GM in SODIUM CHLORIDE 0.9% 100 ML IV SCH ×2 (04:04→09:18)
[2018-09-07 05:01] LABS: BASOPHILS % (AUTO) 0 % (0-1); EOSINOPHILS % (AUTO) 0 % (1-7); LYMPHOCYTES # (AUTO) 0.53 x10^3/uL (1-3.4); LYMPHOCYTES % (AUTO) 5 % (22-44); MD NO; MEAN CORPUSCULAR HGB CONC 33.4 g/dL (33.2-36.2); MEAN PLATELET VOLUME 9.2 fL (7.4-10.4); MONOCYTES # (AUTO) 0.44 x10^3/uL (0.2-0.8); MONOCYTES % (AUTO) 4 % (2-9); NEUTROPHILS # (AUTO) 9.94 x10^3/uL (1.8-6.8); NEUTROPHILS % (AUTO) 91 % (42-75); PLATELET COUNT 161 x10^3/uL (130-400); RED BLOOD COUNT 4.44 x10^6/uL (4.38-5.82); RED CELL DISTRIBUTION WIDTH 13.1 % (9.4-14.8)
[2018-09-07 05:14] LABS: ANION GAP 4 mmol/L (5-15); CALCIUM 7.8 mg/dL (8.5-10.1); CHLORIDE 109 mmol/L (98-107)
[2018-09-07 05:17] LABS: CREATININE 0.64 mg/dL (0.7-1.3)
[2018-09-07 07:13] VITALS: BP 133/77
[2018-09-07] MEDS: SENNA/DOCUSATE TABLET PO SCH (09:00)
[2018-09-07] MEDS: SODIUM CHLORIDE 0.9% 1,000 ML IV SCH (09:18)
[2018-09-07] MEDS: FAMOTIDINE 20 MG/2 ML IVPush SCH (09:19)
[2018-09-07] MEDS: methylPREDNISolone SOD SUCC 40 MG/ML IVPush SCH (09:19)
[2018-09-07] MEDS: ENOXAPARIN 40 MG/0.4 ML SQ SCH (09:20)
[2018-09-07 12:19] VITALS: BP 124/77
[2018-09-07] MEDS ORDERED: PRED20TA PO (12:41)
== END 2018-09-07 16:37 | disposition home or self-care (01) | DRG 208 ==
LOC: ED 05:40 → EDIP 06:37 → ICU 08:00 → 5SO 09-06 07:32
PROVIDERS: ADMIT Internal Medicine; ATTEND Internal Medicine
PROC: 0T9B70Z Drainage of Bladder with Drainage Device, Via Natural or Artificial Opening (ICD-10-PCS; principal; 2018-09-04)
PROC: 5A1945Z Respiratory Ventilation, 24-96 Consecutive Hours (ICD-10-PCS; 2018-09-04)
PROC: 0BH17EZ Insertion of Endotracheal Airway into Trachea, Via Natural or Artificial Opening (ICD-10-PCS; 2018-09-04)
DX: J96.22 Acute and chronic respiratory failure with hypercapnia (principal); G93.41 Metabolic encephalopathy; J44.1 Chronic obstructive pulmonary disease with (acute) exacerbation; Z99.11 Dependence on respirator [ventilator] status; F15.10 Other stimulant abuse, uncomplicated; F17.200 Nicotine dependence, unspecified, uncomplicated; F10.10 Alcohol abuse, uncomplicated; Y90.0 Blood alcohol level of less than 20 mg/100 ml; I10 Essential (primary) hypertension; B18.2 Chronic viral hepatitis C; Z86.74 Personal history of sudden cardiac arrest; Z91.19 Patient's noncompliance with other medical treatment and regimen; Z79.51 Long term (current) use of inhaled steroids; Z79.899 Other long term (current) drug therapy
CPT/HCPCS: 31500; 36415; 36600; 87400; 99291; J3490; J7620; 71045; 80048; 80053; 81001; 82533; 82803; 83735; 83880; 84100; 84478; 84484; 85025; 87040; 87070; 87081; 87205; 93005; 94002; 94003; 94150; 94640; G0378; J0295; J1650; J2250; J2704; J0330; J2060; J2920; J2930; J7030; J7050

== ENCOUNTER 2019-11-22 13:27 | Emergency (ER) | payer MEDICAID ==
[~2019-11-22] VITALS: Ht 182.9 cm; Wt 66.8 kg
[~2019-11-22 13:27] MED LIST changes: -DOXY100T10 PO; +DOXY100T23 PO
--- NOTE | 2019-11-22 14:00 | NUR ---
PT PRESENTS TO ED WITH SOB X2 DAYS, REPORTS HE RAN OUT OF HIS INHALER AND DOESN'T HAVE A PRIMARY PROVIDER. RAPID, LABORED RESPIRATIONS. PROVIDER AWARE OF PT'S STATUS AND NEED FOR BREATHING TX. SUPPLEMENTAL O2 VIA NC.
[2019-11-22] MEDS ORDERED: ALBUTEROL SULFATE 2.5 MG/3 ML ONE (14:17)
[2019-11-22 14:37] VITALS: BP 116/81
--- NOTE | 2019-11-22 14:37 | NUR ---
UP FOR RECHECK
--- NOTE | 2019-11-22 14:37 | NUR ---
PT VERBALIZES RELIEF FROM SOB FOLLOWING BREATHING TX. SITTING UP IN BED USING CELL PHONE, APPEARS RELAXED. NAD NOTED AT THIS TIME. NC REMAINS IN PLACE.
== END 2019-11-22 15:24 | disposition home or self-care (01) ==
LOC: ED 14:14
DX: J43.9 Emphysema, unspecified (principal); F17.210 Nicotine dependence, cigarettes, uncomplicated
CPT/HCPCS: 71045; 93005; 94640; 99283; J7512; 99284

== ENCOUNTER 2019-12-12 18:20 | Emergency (ER) | payer MEDICAID ==
[~2019-12-12] VITALS: Ht 182.9 cm; Wt 65.6 kg
--- NOTE | 2019-12-12 18:41 | NUR ---
ANNAMARIE TRIAGED PT
[2019-12-12] MEDS ORDERED: ALBUTEROL SULFATE 2.5 MG/3 ML NPPB ONE (19:00)
[2019-12-12] MEDS ORDERED: ALBUTEROL SULFATE 2.5 MG/3 ML ONE (19:02)
[2019-12-12 19:25] LABS: BASOPHILS # (AUTO) 0.08 x10^3/uL (0-0.1); BASOPHILS % (AUTO) 2 % (0-1); EOSINOPHILS # (AUTO) 0.75 x10^3/uL (0-0.4); EOSINOPHILS % (AUTO) 16 % (1-7); LYMPHOCYTES # (AUTO) 0.95 x10^3/uL (1-3.4); LYMPHOCYTES % (AUTO) 20 % (22-44); MD NO; MEAN CORPUSCULAR HEMOGLOBIN 32.1 pg (27.5-34.5); MEAN CORPUSCULAR HGB CONC 33.4 g/dL (33.2-36.2); MEAN PLATELET VOLUME 9.2 fL (7.4-10.4); MONOCYTES # (AUTO) 0.71 x10^3/uL (0.2-0.8); MONOCYTES % (AUTO) 15 % (2-9); NEUTROPHILS # (AUTO) 2.38 x10^3/uL (1.8-6.8); NEUTROPHILS % (AUTO) 49 % (42-75); PLATELET COUNT 179 x10^3/uL (130-400); RED BLOOD COUNT 5.09 x10^6/uL (4.38-5.82); RED CELL DISTRIBUTION WIDTH 13.3 % (9.4-14.8)
[2019-12-12 19:29] LABS: ALBUMIN 3.4 g/dL (3.4-5.0); ANION GAP 6 mmol/L (5-15); CALCIUM 8.8 mg/dL (8.5-10.1); CHLORIDE 109 mmol/L (98-107); CREATININE 0.77 mg/dL (0.7-1.3)
[2019-12-12 19:33] LABS: TROPONIN I < 0.015 ng/mL (0.000-0.045)
--- NOTE | 2019-12-12 20:13 | NUR ---
Called into room for pt having SpO2 readings below 90% at room air. Pt has readings of 88% at room air when not moving his finger. Pt states he has home O2 that he does not use. Pt states he is supposed to wear 1.5-2Lpm of O2 at home. Pt placed on 2Lpm O2. Will recheck.
[2019-12-12 21:00] VITALS: BP 134/91
== END 2019-12-12 21:03 | disposition home or self-care (01) ==
LOC: ED 18:52
DX: J44.1 Chronic obstructive pulmonary disease with (acute) exacerbation (principal); R94.31 Abnormal electrocardiogram [ECG] [EKG]; Z72.9 Problem related to lifestyle, unspecified; F15.129 Other stimulant abuse with intoxication, unspecified; Z87.891 Personal history of nicotine dependence
CPT/HCPCS: 36415; 71045; 80048; 82040; 84484; 85025; 93005; 94640; 99285; J7512; J7613

== ENCOUNTER 2020-01-18 13:30 | Emergency (ER) | payer MEDICAID ==
[~2020-01-18] VITALS: Ht 182.9 cm; Wt 62.8 kg
[2020-01-18] MEDS ORDERED: methylPREDNISolone SOD SUCC 125 MG/2 ML ONE (13:59)
[2020-01-18] MEDS ORDERED: ALBUTEROL/IPRATROPIUM 2.5MG/0.5MG, 3 ML NPPB ONE (14:00)
[2020-01-18] MEDS ORDERED: SODIUM CHLORIDE FLUSH 10ML SYR IVF ONE (14:00)
[2020-01-18] MEDS: methylPREDNISolone SOD SUCC 125 MG/2 ML IV ONE ×2 (14:11→15:00)
[2020-01-18 14:20] LABS: BASOPHILS # (AUTO) 0.02 x10^3/uL (0-0.1); BASOPHILS % (AUTO) 0 % (0-1); EOSINOPHILS # (AUTO) 0.62 x10^3/uL (0-0.4); EOSINOPHILS % (AUTO) 7 % (1-7); LYMPHOCYTES % (AUTO) 14 % (22-44); MD NO; MEAN CORPUSCULAR HEMOGLOBIN 31.8 pg (27.5-34.5); MEAN CORPUSCULAR HGB CONC 32.5 g/dL (33.2-36.2); MEAN PLATELET VOLUME 9.3 fL (7.4-10.4); MONOCYTES # (AUTO) 0.88 x10^3/uL (0.2-0.8); MONOCYTES % (AUTO) 10 % (2-9); NEUTROPHILS # (AUTO) 5.97 x10^3/uL (1.8-6.8); NEUTROPHILS % (AUTO) 69 % (42-75); PLATELET COUNT 250 x10^3/uL (130-400); RED BLOOD COUNT 5.66 x10^6/uL (4.38-5.82); RED CELL DISTRIBUTION WIDTH 13.9 % (9.4-14.8)
[2020-01-18 14:27] LABS: ALBUMIN 3.8 g/dL (3.4-5.0); ANION GAP 5 mmol/L (5-15); CALCIUM 9.4 mg/dL (8.5-10.1); CHLORIDE 104 mmol/L (98-107); CREATININE 1.08 mg/dL (0.7-1.3)
--- NOTE | 2020-01-18 14:28 | NUR ---
pt presents to ED with c/o worsening sob, expiratory wheezes noted. pt has noctural cough which is baseline. ekg taken in triage, pt has had albuterol neb x2 at home [employer]. piv attempted by this rn, unsuccessful, pt has poor vasculature. routeman notified of need for iv assist. pt to have neb tx after piv placement. all monitors in place, pt is sinus tach rate 130s on diagnostic cardiac sonographer, no ectopy noted. call light in reach.
--- NOTE | 2020-01-18 14:45 | NUR ---
report given to LIOR Gonzales who is assuming care, pt a&o, resps even, midly labored, unchanged from arrival. piv placed by Janet Diamond RN to medicate pt.
[2020-01-18] MEDS ORDERED: SODIUM CHLORIDE 0.9% 1,000ML IVBOLUS ONE (15:00)
[2020-01-18] MEDS ORDERED: ALBUTEROL/IPRATROPIUM 2.5MG/0.5MG, 3 ML ONE (15:02)
--- NOTE | 2020-01-18 15:51 | NUR ---
RN in to assess patient. Audible wheezing from the doorway. Exp wheezing throughout all lung painter to auscultation. IV solumedrol given via SIVP, NS bolus started and Duoneb tx done. After tx, lungs are diminished with fewer wheezes, and no audible wheezing heard. Pt states "I feel so much better after that treatment." RN will continue to monitor patient for resp status.
[2020-01-18 16:39] VITALS: BP 134/86
== END 2020-01-18 16:48 | disposition home or self-care (01) ==
LOC: ED 13:57
DX: J44.1 Chronic obstructive pulmonary disease with (acute) exacerbation (principal); R00.0 Tachycardia, unspecified; R06.00 Dyspnea, unspecified; I51.9 Heart disease, unspecified; Z87.891 Personal history of nicotine dependence
CPT/HCPCS: 36415; 71045; 80048; 82040; 85025; 93005; 94640; 96374; 99285; J2930; J7030

== ENCOUNTER 2020-03-21 00:30 | Inpatient (IN) | payer MEDICAID ==
[~2020-03-21] VITALS: Ht 182.9 cm; Wt 60.6 kg
[2020-03-21] MEDS ORDERED: methylPREDNISolone SOD SUCC 125 MG/2 ML ONE (00:58)
[2020-03-21] MEDS ORDERED: ALBUTEROL/IPRATROPIUM 2.5MG/0.5MG, 3 ML ONE (00:58)
[2020-03-21] MEDS ORDERED: ALBUTEROL/IPRATROPIUM 2.5MG/0.5MG, 3 ML NPPB PRN (01:00)
[2020-03-21] MEDS ORDERED: methylPREDNISolone SOD SUCC 125 MG/2 ML IVPush ONE (01:00)
[2020-03-21] MEDS ORDERED: SODIUM CHLORIDE FLUSH 10ML SYR IVF ONE (01:00)
[2020-03-21 01:15] LABS: BASOPHILS # (AUTO) 0.07 x10^3/uL (0-0.1); BASOPHILS % (AUTO) 1 % (0-1); EOSINOPHILS # (AUTO) 1.01 x10^3/uL (0-0.4); EOSINOPHILS % (AUTO) 17 % (1-7); LYMPHOCYTES % (AUTO) 24 % (22-44); MD NO; MEAN CORPUSCULAR HEMOGLOBIN 32.3 pg (27.5-34.5); MEAN CORPUSCULAR HGB CONC 32.8 g/dL (33.2-36.2); MEAN CORPUSCULAR VOLUME 98.7 fL (81-97); MEAN PLATELET VOLUME 9.1 fL (7.4-10.4); MONOCYTES # (AUTO) 0.78 x10^3/uL (0.2-0.8); MONOCYTES % (AUTO) 13 % (2-9); NEUTROPHILS # (AUTO) 2.58 x10^3/uL (1.8-6.8); NEUTROPHILS % (AUTO) 44 % (42-75); PLATELET COUNT 223 x10^3/uL (130-400); RED BLOOD COUNT 5.15 x10^6/uL (4.38-5.82)
[2020-03-21 01:21] LABS: ALANINE AMINOTRANSFERASE 118 U/L (12-78); ALBUMIN 3.7 g/dL (3.4-5.0); ANION GAP 4 mmol/L (5-15); CALCIUM 9.2 mg/dL (8.5-10.1); CHLORIDE 106 mmol/L (98-107); CREATININE 0.95 mg/dL (0.7-1.3)
[2020-03-21 01:23] LABS: ALKALINE PHOSPHATASE 120 U/L (45-117); BILIRUBIN,TOTAL 0.8 mg/dL (0.2-1.0); TOTAL PROTEIN 7.9 g/dL (6.4-8.2)
[2020-03-21] MEDS ORDERED: SODIUM CHLORIDE FLUSH 10ML SYR IVF PRN (02:00)
--- NOTE | 2020-03-21 02:40 | NUR ---
Hospitalist and ERP agree to no covid swab and med/surd admint.
[2020-03-21] MEDS ORDERED: methylPREDNISolone SOD SUCC 125 MG/2 ML IVPush SCH ×2 (03:00→07:00)
[2020-03-21] MEDS ORDERED: THIAMINE 200 MG in SODIUM CHLORIDE 0.9% 50 ML IV ONE (03:00)
[2020-03-21] MEDS ORDERED: ENALAPRILAT 1.25 MG/ML, 2ML IVPush PRN (03:00)
[2020-03-21] MEDS ORDERED: TRAZODONE 50MG TABLET PO PRN (03:00)
[2020-03-21] MEDS ORDERED: ACETAMINOPHEN 325 MG TABLET PO PRN (03:00)
[2020-03-21] MEDS ORDERED: ONDANSETRON 2MG/ML, 2ML IVPush PRN (03:00)
[2020-03-21] MEDS ORDERED: ENOXAPARIN 40 MG/0.4 ML ONE (03:10)
[2020-03-21] MEDS: ENOXAPARIN 40 MG/0.4 ML SQ SCH (03:14)
--- NOTE | 2020-03-21 03:50 | NUR ---
Called Pharmacy, spoke to Millie regarding Thiamine IVPB order. Order will be filled and sent to pt room, 332.
[2020-03-21 04:20] VITALS: BP 145/97
[2020-03-21] MEDS ORDERED: TIOT18CA INH (05:59)
[2020-03-21] MEDS: methylPREDNISolone SOD SUCC 125 MG/2 ML IVPush SCH ×3 (06:28→17:35)
[2020-03-21] MEDS: ALBUTEROL-IPRATROPIUM MDI INH INH SCH ×4 (06:29→21:23)
[2020-03-21 06:51] VITALS: BP 120/79
[2020-03-21] MEDS: THIAMINE 100MG TABLET PO SCH ×2 (10:12→21:22)
[2020-03-21] MEDS: LISINOPRIL 10 MG TABLET PO SCH ×2 (10:12→21:22)
[2020-03-21 13:26] VITALS: BP 129/84
[2020-03-21 15:23] LABS: AMPHETAMINE SCREEN, URINE Positive (Negative); BARBITURATE SCREEN, URINE Negative (Negative); BENZODIAZEPINE SCREEN, URINE Negative (Negative); CANNABINOID SCREEN, URINE Negative (Negative); COCAINE SCREEN, URINE Negative (Negative); METHADONE SCREEN, URINE Negative (Negative); OPIATE SCREEN, URINE Negative (Negative)
[2020-03-21 18:16] VITALS: BP 98/63
[2020-03-22 00:18] VITALS: BP 100/58
[2020-03-22] MEDS: methylPREDNISolone SOD SUCC 125 MG/2 ML IVPush SCH ×2 (01:15→06:40)
[2020-03-22 04:45] LABS: CHLORIDE 104 mmol/L (98-107)
[2020-03-22 05:01] LABS: ALANINE AMINOTRANSFERASE 89 U/L (12-78); ALBUMIN 3.4 g/dL (3.4-5.0); ALKALINE PHOSPHATASE 105 U/L (45-117); ANION GAP 3 mmol/L (5-15); BILIRUBIN,TOTAL 0.8 mg/dL (0.2-1.0); CALCIUM 9.2 mg/dL (8.5-10.1); CREATININE 0.89 mg/dL (0.7-1.3); TOTAL PROTEIN 7.4 g/dL (6.4-8.2)
[2020-03-22] MEDS: ENOXAPARIN 40 MG/0.4 ML SQ SCH (06:41)
[2020-03-22] MEDS: ALBUTEROL-IPRATROPIUM MDI INH INH SCH ×3 (06:42→16:23)
[2020-03-22 07:54] VITALS: BP 110/69
[2020-03-22] MEDS: THIAMINE 100MG TABLET PO SCH (10:33)
[2020-03-22] MEDS ORDERED: PRED20TA PO (14:34)
[2020-03-22] MEDS ORDERED: FLUT1AER INH (14:35)
[2020-03-22 15:15] VITALS: BP 97/60
[2020-03-22] MEDS ORDERED: methylPREDNISolone SOD SUCC 125 MG/2 ML IVPush SCH (19:00)
== END 2020-03-22 17:13 | disposition home or self-care (01) | DRG 189 ==
LOC: ED 01:27 → EDIP 01:44 → 3N 04:12
PROVIDERS: ADMIT Family Medicine; ATTEND Hospitalist
DX: J96.01 Acute respiratory failure with hypoxia (principal); J44.1 Chronic obstructive pulmonary disease with (acute) exacerbation; D75.89 Other specified diseases of blood and blood-forming organs; F10.10 Alcohol abuse, uncomplicated; Y90.9 Presence of alcohol in blood, level not specified; F15.10 Other stimulant abuse, uncomplicated; I10 Essential (primary) hypertension; Z82.5 Family history of asthma and other chronic lower respiratory diseases; Z86.74 Personal history of sudden cardiac arrest; Z87.891 Personal history of nicotine dependence
CPT/HCPCS: 36415; 71045; 76705; 80053; 80307; 82607; 84443; 85025; 93005; 96374; G0378; J1650; J3411; J2930

== ENCOUNTER 2020-05-26 02:44 | Inpatient (IN) | payer MEDICAID ==
[~2020-05-26] VITALS: Ht 182.9 cm; Wt 62.1 kg
[~2020-05-26 02:44] MED LIST changes: +FLUT1AER INH; +TIOT18CA INH
--- NOTE | 2020-05-26 03:02 | NUR ---
EKG DONE IN TRIAGE, PT PLACED ON 3L NC O2 SAT UP TO 94% PT STS HE IS FEELING BETTER AND IS ABLE TO SPEAK IN 4 WORD SENTENCES. PT STS HE USED HIS NEBULIZER JUST PRIOR TO ARRIVAL TO ER.
[2020-05-26] MEDS ORDERED: ALBUTEROL/IPRATROPIUM 2.5MG/0.5MG, 3 ML ONE (03:13)
[2020-05-26] MEDS ORDERED: ALBUTEROL SULFATE 2.5MG/0.5ML ONE (03:15)
[2020-05-26] MEDS ORDERED: ALBUTEROL 0.5%, 20ML ONE ×2 (03:19→03:32)
[2020-05-26] MEDS ORDERED: ALBUTEROL 0.5%, 20ML NPPB SCH (03:30)
[2020-05-26] MEDS ORDERED: IPRATROPIUM 0.5 MG/2.5 ML INHA NPPB ONE (03:30)
--- NOTE | 2020-05-26 03:43 | NUR ---
1st contact c pt. states sob x 2 days, progressively getting worse. last intubation was 1 yr ago. started on hour long neb tx & geovanni neb. labs drawn & sent c b/c x2. call light inreach. will ctm.
[2020-05-26 03:44] LABS: BASOPHILS # (AUTO) 0.03 x10^3/uL (0-0.1); BASOPHILS % (AUTO) 1 % (0-1); EOSINOPHILS # (AUTO) 0.76 x10^3/uL (0-0.4); EOSINOPHILS % (AUTO) 13 % (1-7); LYMPHOCYTES # (AUTO) 1.29 x10^3/uL (1-3.4); LYMPHOCYTES % (AUTO) 23 % (22-44); MD NO; MEAN CORPUSCULAR HEMOGLOBIN 31.9 pg (27.5-34.5); MEAN CORPUSCULAR HGB CONC 32.5 g/dL (33.2-36.2); MEAN PLATELET VOLUME 9.1 fL (7.4-10.4); MONOCYTES # (AUTO) 0.68 x10^3/uL (0.2-0.8); MONOCYTES % (AUTO) 12 % (2-9); NEUTROPHILS # (AUTO) 2.92 x10^3/uL (1.8-6.8); NEUTROPHILS % (AUTO) 51 % (42-75); PLATELET COUNT 190 x10^3/uL (130-400); RED BLOOD COUNT 5.34 x10^6/uL (4.38-5.82); RED CELL DISTRIBUTION WIDTH 13.3 % (9.4-14.8)
[2020-05-26 03:53] LABS: ALBUMIN 3.8 g/dL (3.4-5.0); ANION GAP 5 mmol/L (5-15); CALCIUM 8.7 mg/dL (8.5-10.1); CHLORIDE 104 mmol/L (98-107); CREATININE 0.98 mg/dL (0.7-1.3)
[2020-05-26 03:56] LABS: TROPONIN I < 0.015 ng/mL (0.000-0.045)
--- NOTE | 2020-05-26 04:17 | NUR ---
pt remains on hour long. states feeling better. will ctm.
--- NOTE | 2020-05-26 04:31 | NUR ---
turned off hourlong per md request. remains on 3L NC. states feeling better. aware of plan to admit. will ctm. call light in reach.
--- NOTE | 2020-05-26 05:08 | NUR ---
pt removed from NC, tolerated well. aware of plan to admit. denies any needs. will ctm.
--- NOTE | 2020-05-26 05:25 | NUR ---
Pt O2 sats dropping to 80s%, reapplied NC at 2L and o2 sat increased to 98%
[2020-05-26] MEDS ORDERED: SODIUM CHLORIDE 0.9% 1,000 ML IV SCH (05:28)
[2020-05-26] MEDS ORDERED: BISACODYL 10 MG SUPP PR PRN (05:30)
[2020-05-26] MEDS ORDERED: POLYETHYLENE GLYCOL 17 GM PACKET PO PRN (05:30)
[2020-05-26] MEDS ORDERED: PROMETHAZINE 25 MG/ML, 1ML IM PRN (05:30)
[2020-05-26] MEDS ORDERED: ACETAMINOPHEN 325 MG TABLET PO PRN (05:30)
[2020-05-26] MEDS ORDERED: LABETALOL 5MG/ML, 20ML IVPush PRN (05:30)
[2020-05-26] MEDS ORDERED: OXYcodone IR 5MG TABLET PO PRN (05:30)
[2020-05-26] MEDS ORDERED: DOCUSATE 100 MG CAPSULE PO PRN (05:30)
[2020-05-26] MEDS ORDERED: ONDANSETRON 2MG/ML, 2ML IVPush PRN (05:30)
[2020-05-26] MEDS ORDERED: ONDANSETRON ODT 4 MG PO PRN (05:30)
[2020-05-26] MEDS ORDERED: morphine SULFATE 10 MG/ML, 1ML IVPush PRN (05:30)
--- NOTE | 2020-05-26 05:34 | NUR ---
Report from Miryam TINAJERO
[2020-05-26] MEDS ORDERED: ENOXAPARIN 40 MG/0.4 ML ONE (05:44)
[2020-05-26] MEDS ORDERED: methylPREDNISolone SOD SUCC 125 MG/2 ML ONE (05:44)
--- NOTE | 2020-05-26 05:47 | NUR ---
Vibramycin requested from pharmacy
[2020-05-26 06:28] LABS: FREE T4 (FREE THYROXINE) 1.12 ng/dL (0.76-1.46)
--- NOTE | 2020-05-26 06:50 | NUR ---
Four attempts by this RN and another RN to insert new PIV. previous LAC infiltrated upon flushing. Unsuccessful attempts at this time
--- NOTE | 2020-05-26 06:53 | NUR ---
Report to Madisyn TINAJERO and Janelle TINAJERO at this time
[2020-05-26] MEDS: ENOXAPARIN 40 MG/0.4 ML SQ SCH (07:37)
[2020-05-26] MEDS: DOXYCYCLINE 100 MG in DEXTROSE 5% 250 ML IV SCH ×2 (07:37→21:00)
[2020-05-26] MEDS: methylPREDNISolone SOD SUCC 125 MG/2 ML IVPush SCH ×3 (07:37→17:35)
--- NOTE | 2020-05-26 07:40 | NUR ---
Najma shah in ED - 05/26/20 at 0744 by [email or web address] TIARA BAHENA AT BEDSIDE TP DISCUSS POC
--- NOTE | 2020-05-26 07:40 | NUR ---
TIARA BAHENA AT BEDSIDE TP DISCUSS POC
--- NOTE | 2020-05-26 07:41 | NUR ---
20 GAUGE IV STARTED IN RIGHT UPPER ARM, PATIENT MEDICATED PER eMAR, CONNECTED TO COMMUNICATIONS INSTRUCTOR, NO ACUTE SIGNS OF DISTRESS, CALL LIGHT WITHIN REACH.
[2020-05-26] MEDS ORDERED: PLEASE ENTER WEIGHT MC SCH (08:30)
[2020-05-26] MEDS ORDERED: ALBUTEROL-IPRATROPIUM MDI INH INH PRN (09:00)
[2020-05-26] MEDS ORDERED: ALBUTEROL-IPRATROPIUM MDI INH INH SCH (09:00)
--- NOTE | 2020-05-26 09:04 | NUR ---
Inhaler requested from pharmacy.
--- NOTE | 2020-05-26 09:13 | NUR ---
SBAR GIVEN TO LIOR AGRAWAL TAKING OVER CARE OF PATIENT.
--- NOTE | 2020-05-26 10:25 | NUR ---
Resting in [facility]. VSS. No needs. Report to LIOR Ruano.
[2020-05-26 10:58] VITALS: BP 153/90
[2020-05-26] MEDS: ALBUTEROL-IPRATROPIUM MDI INH INH SCH ×3 (12:35→19:45)
[2020-05-26] MEDS: FLUTICASONE/VILANTEROL 100-25MCG/INH INH SCH (12:35)
[2020-05-26] MEDS ORDERED: LORazepam 0.5MG TABLET PO PRN (13:00)
[2020-05-26] MEDS ORDERED: LORazepam 2 MG/ML, 1ML IV PRN ×4 (13:00)
[2020-05-26] MEDS ORDERED: LORazepam 1MG TABLET PO PRN ×3 (13:00)
[2020-05-26 19:13] VITALS: BP 160/88
[2020-05-26] MEDS: THIAMINE 100MG TABLET PO SCH (21:00)
[2020-05-27 00:29] VITALS: BP 127/72
[2020-05-27] MEDS: methylPREDNISolone SOD SUCC 125 MG/2 ML IVPush SCH ×5 (01:14→22:00)
[2020-05-27 05:36] LABS: ALBUMIN 3.2 g/dL (3.4-5.0); ANION GAP 6 mmol/L (5-15); BASOPHILS % (AUTO) 0 % (0-1); CALCIUM 8.8 mg/dL (8.5-10.1); CHLORIDE 109 mmol/L (98-107); EOSINOPHILS % (AUTO) 0 % (1-7); LYMPHOCYTES # (AUTO) 0.71 x10^3/uL (1-3.4); LYMPHOCYTES % (AUTO) 6 % (22-44); MD NO; MEAN CORPUSCULAR HEMOGLOBIN 31.8 pg (27.5-34.5); MEAN CORPUSCULAR HGB CONC 32.7 g/dL (33.2-36.2); MEAN PLATELET VOLUME 8.9 fL (7.4-10.4); MONOCYTES # (AUTO) 0.31 x10^3/uL (0.2-0.8); MONOCYTES % (AUTO) 3 % (2-9); NEUTROPHILS % (AUTO) 92 % (42-75); PLATELET COUNT 214 x10^3/uL (130-400); RED BLOOD COUNT 4.89 x10^6/uL (4.38-5.82); RED CELL DISTRIBUTION WIDTH 12.8 % (9.4-14.8)
[2020-05-27 05:40] LABS: ALANINE AMINOTRANSFERASE 90 U/L (12-78); ALKALINE PHOSPHATASE 104 U/L (45-117); BILIRUBIN,TOTAL 0.5 mg/dL (0.2-1.0); CHOL/HDL RATIO 3.1; CHOLESTEROL, TOTAL 161 mg/dL (140-239); HDL CHOL % 32 % (26-37); HDL CHOLESTEROL (DIRECT) 52 mg/dL (40-60); LDL CHOLESTEROL,CALCULATED 98 mg/dL (54-169); LDL/HDL RATIO 1.9 (0.5-3.0); TOTAL PROTEIN 6.8 g/dL (6.4-8.2); TRIGLYCERIDES 57 mg/dL (50-200); VLDL CHOLESTEROL 11 mg/dL (0-25)
[2020-05-27 08:19] VITALS: BP 110/67
[2020-05-27] MEDS: FLUTICASONE/VILANTEROL 100-25MCG/INH INH SCH (08:45)
[2020-05-27] MEDS: ALBUTEROL-IPRATROPIUM MDI INH INH SCH ×4 (08:45→20:50)
[2020-05-27] MEDS: THIAMINE 100MG TABLET PO SCH ×2 (09:52→21:38)
[2020-05-27] MEDS: ENOXAPARIN 40 MG/0.4 ML SQ SCH (09:52)
[2020-05-27] MEDS: DOXYCYCLINE 100 MG in DEXTROSE 5% 250 ML IV SCH (09:53)
[2020-05-27 12:58] VITALS: BP 105/68
[2020-05-27 21:06] VITALS: BP 124/87
[2020-05-27] MEDS: DOXYCYCLINE 100MG TABLET PO SCH (21:38)
[2020-05-28 02:39] VITALS: BP 122/72
[2020-05-28] MEDS: methylPREDNISolone SOD SUCC 125 MG/2 ML IVPush SCH (04:42)
[2020-05-28 07:29] VITALS: BP 129/77
[2020-05-28] MEDS: FLUTICASONE/VILANTEROL 100-25MCG/INH INH SCH (07:30)
[2020-05-28] MEDS: ALBUTEROL-IPRATROPIUM MDI INH INH SCH ×4 (07:30→20:00)
[2020-05-28] MEDS: THIAMINE 100MG TABLET PO SCH ×2 (09:35→19:54)
[2020-05-28] MEDS: DOXYCYCLINE 100MG TABLET PO SCH ×2 (09:35→19:54)
[2020-05-28] MEDS: ENOXAPARIN 40 MG/0.4 ML SQ SCH (09:36)
[2020-05-28 13:42] VITALS: BP 123/78
[2020-05-28 18:39] VITALS: BP 133/67
[2020-05-29 01:21] VITALS: BP 97/64
[2020-05-29] MEDS: ALBUTEROL-IPRATROPIUM MDI INH INH SCH (07:30)
[2020-05-29] MEDS: FLUTICASONE/VILANTEROL 100-25MCG/INH INH SCH (07:30)
[2020-05-29] MEDS: THIAMINE 100MG TABLET PO SCH (07:39)
[2020-05-29] MEDS: DOXYCYCLINE 100MG TABLET PO SCH (07:39)
[2020-05-29 07:53] VITALS: BP 119/78
[2020-05-29] MEDS: ENOXAPARIN 40 MG/0.4 ML SQ SCH (09:50)
[2020-05-29] MEDS ORDERED: DOXY100T PO (11:31)
[2020-05-29] MEDS ORDERED: PRED20TA PO (11:31)
[2020-05-29 11:48] VITALS: BP 115/77
== END 2020-05-29 12:05 | disposition home or self-care (01) | DRG 189 ==
LOC: ED 04:03 → EDIP 05:21 → 4WST 10:39 → 4NE 05-27 14:47
PROVIDERS: ADMIT Internal Medicine; ATTEND Family Medicine
DX: J96.21 Acute and chronic respiratory failure with hypoxia (principal); E87.4 Mixed disorder of acid-base balance; J44.1 Chronic obstructive pulmonary disease with (acute) exacerbation; J96.22 Acute and chronic respiratory failure with hypercapnia; B18.2 Chronic viral hepatitis C; F15.10 Other stimulant abuse, uncomplicated; I10 Essential (primary) hypertension; Z72.0 Tobacco use; Z82.5 Family history of asthma and other chronic lower respiratory diseases; Z86.74 Personal history of sudden cardiac arrest; Z91.14 Patient's other noncompliance with medication regimen; Z91.19 Patient's noncompliance with other medical treatment and regimen; R00.0 Tachycardia, unspecified; D75.1 Secondary polycythemia
CPT/HCPCS: 36415; 36600; 99291; J7644; 71045; 80048; 80053; 80061; 82040; 82803; 83036; 83735; 83880; 84439; 84443; 84484; 85025; 87040; 87070; 87205; 93005; 93308; 93321; 93325; 94640; 94644; G0378; J1650; J7060; J2930; J7030; J7512